=== PATIENT | female | born 1950 | race Caucasian/White ===

== ENCOUNTER → 2016-06-30 | Outpatient (CLI) | payer OTHER, BC ==
[~2016-06-30] MED LIST: ASPCH81 PO; ATOR-22 PO; BIOT1CAP8 PO; BUPR150T5 PO; CLTP PO; DOCU100C31 PO; ERGO1CAP35 PO; HYDR-5688 PO; IBUP-103 PO; LANS30CA41 PO; LEVO25TA PO; MULTTAB58 PO; NYSS/ MT; PROM1TAB6 PO; PROVERA; RALO60TA12 PO; SERT50TA PO; WLLSR/150 PO; ZLF/100 PO
[2016-06-30 11:26] LABS: ALT/SGPT 29 U/L (12-78); AST/SGOT 18 U/L (15-37); BLOOD UREA NITROGEN 12 mg/dl (7-18); BUN/CREATININE RATIO 13.4 (10-20); CALCIUM 8.4 mg/dl (8.5-10.1); CARBON DIOXIDE 29 mmol/L (21-32); CHLORIDE 108 mmol/L (98-107); CHOLESTEROL 204 mg/dl (0-200); CREATININE 0.89 mg/dl (0.60-1.20); GLUCOSE 121 mg/dl (70-99); POTASSIUM 4.1 mmol/L (3.5-5.1); SODIUM 143 mmol/L (136-145); TRIGLYCERIDES 199 mg/dl (0-150); VERY LOW DENSITY LIPOPROT CALC 40 mg/dl
[2016-06-30 11:38] LABS: ALB/GLOB RATIO 1.1 (0.9-2); ALKALINE PHOSPHATASE 64 U/L (45-117); CHOLESTEROL/HDL RATIO 4.4; HDL CHOLESTEROL 46 mg/dl; LDL CHOLESTEROL CALCULATED 118 mg/dl
== END | disposition home or self-care (01) ==
LOC: C.LABBC 07:36
PROVIDERS: ATTEND Nurse Practitioner Family
DX: E78.00 Pure hypercholesterolemia, unspecified (principal); E03.9 Hypothyroidism, unspecified

== ENCOUNTER → 2016-07-25 | Outpatient (CLI) | payer OTHER, BC ==
[~2016-07-25] MED LIST changes: -RALO60TA12 PO; +RALO60TA30 PO
--- NOTE | 2016-07-25 15:05 | DIAGNOSTIC IMAGING REPORT ---
LEFT HIP UNILATERAL 2 VIEWS CLINICAL HISTORY: LEFT HIP PAIN COMPARISON: None. DISCUSSION: No acute fractures or dislocations are visualized. There are no erosive or destructive changes. There are dystrophic type calcification located adjacent the lateral aspect of the ileum. IMPRESSION: No fractures, dislocations, or destructive lesions are visualized. Electronically signed by: Markie Aguillon M.D. 07/25/2016 3:04 PM Dictated Date/Time: 07/25/2016 3:04 PM
== END | disposition home or self-care (01) ==
LOC: C.RADBC 14:15
PROVIDERS: ATTEND Nurse Practitioner Family
DX: M25.552 Pain in left hip (principal)

== ENCOUNTER → 2016-09-26 | Outpatient (CLI) | payer OTHER, BC ==
--- NOTE | 2016-09-26 15:35 | DIAGNOSTIC IMAGING REPORT ---
MRI OF THE LUMBAR SPINE WITHOUT IV CONTRAST CLINICAL HISTORY: Spinal stenosis. COMPARISON STUDY: MRI of the lumbar spine dated 01/07/2015. Abdominal CT dated 09/27/2011. TECHNIQUE: MRI of the lumbar spine is performed using various T1 and T2-weighted sequences in the axial and sagittal planes. IV contrast was not administered for this examination. The examination is significantly degraded by open MRI technique. FINDINGS: Lumbar spine: Vertebral body height is maintained throughout the lumbar spine. There are bilateral pars defects at L5, with 10 mm of anterolisthesis at L5-S1. The degree of anterolisthesis has increased from 01/07/2015. There is significant degenerative endplate sclerosis at L5-S1 as well as marrow edema. Alignment is otherwise maintained throughout the lumbar spine. The transverse and spinous processes are intact as visualized. A hemangioma is again seen in the body of L1. No destructive bony lesion is identified. Findings suggest previous left L5-S1 hemilaminectomy. Intervertebral discs: There is advanced degenerative disc desiccation and loss of height at L5-S1. Mild desiccation is seen at the remaining lumbar levels. Minimal loss of height is present at T12-L1 and L1-L2. Spinal cord: The visualized spinal cord is normal in morphology and signal intensity. The conus medullaris terminates at the L1-L2 interspace. There is tethering of the nerve roots of the cauda equina at the level of L5. L1-L2: Unremarkable. L2-L3: Unremarkable. L3-L4: Unremarkable. L4-L5: There is minimal posterior disc bulge. There is mild bilateral subarticular stenosis. There is a large synovial cyst arising from the left facet at L4-L5. This is best seen on axial image #21, and in conjunction with hypertrophy of the ligamentum flavum, this contributes to severe central canal stenosis at this level. The minimum AP diameter is 2 mm. There is associated tethering of the nerve roots of the cauda equina at this level. Facet arthropathy also contributes to minimal bilateral neural foraminal narrowing. L5-S1: As noted above, there is grade 1 anterolisthesis at L5-S1 secondary to bilateral pars defects. There is mild to moderate central canal stenosis at this level, with a minimum AP diameter of 7 mm. Sacrum: The partially visualized sacrum is normal in morphology and signal intensity. Soft tissues: The paraspinous soft tissues are normal as imaged. A left renal cyst is incidentally noted. IMPRESSION: 1. There is a large synovial cyst arising from the left facet at L4-L5. This is new from the 2015 examination and in conjunction with hypertrophy of the ligamentum flavum causes severe central canal stenosis at this level with a minimum AP diameter of 2 mm. 2. Findings suggest previous hemilaminectomy at L5-S1 on the left. 3. There are bilateral pars defects at L5 with increasing anterolisthesis at L5-S1 from 2015. There is significant associated endplate sclerosis as well as endplate edema. There is moderate central canal stenosis at this level, with a minimum AP diameter of 7 mm. 4. See discussion for detailed level by level analysis. Dictated: 09/26/2016 2:07 PM Transcribed: 09/26/2016 3:34 PM [email or web address] Electronically signed by: Wyatt Dillard M.D. 09/26/2016 3:35 PM Dictated Date/Time: 09/26/2016 2:07 PM
== END | disposition home or self-care (01) ==
LOC: C.OPENMRI 12:53
PROVIDERS: ATTEND Orthopaedic Surgery Orthopaedic Surgery of the Spine
DX: M99.73 Connective tissue and disc stenosis of intervertebral foramina of lumbar region (principal); M71.38 Other bursal cyst, other site; M43.16 Spondylolisthesis, lumbar region

== ENCOUNTER 2016-10-20 05:29 | Inpatient (IN) | payer OTHER, BC ==
[2016-10-14 08:13] VITALS: BMI 24.0
--- NOTE | 2016-10-14 08:47 | PAT Medication Instructions ---
Service Date Oct 14, 2016. Current Home Medication List Aspirin (Aspirin Tab-Chewable *), 81 MG PO QPM Atorvastatin (Lipitor), 20 MG PO QAM Biotin (Biotin), 500 MCG PO QPM Bupropion Hcl (Wellbutrin Sr), 150 MG PO QAM Calcium/Vitamin D (Caltrate 600 Plus *), 1 TAB PO QPM Ibuprofen Tab (Advil), 400-600 MG PO PRN Lansoprazole (Prevacid), 1 CAP PO QAM Levothyroxine Sodium (Synthroid), 37.5 MCG PO QAM Multiple Vitamin (Multivitamin), 1 TAB PO QAM Raloxifene Hcl (Evista), 60 MG PO QAM Sertraline (Zoloft), 50 MG PO QPM [Provera Inj], 1 DOSE INJ [id number] Medication Instructions For Your Scheduled Surgery - Hold the following medications as of 10/15/16: Biotin (Biotin), 500 MCG PO QPM - Hold the following medications the morning of surgery: Multiple Vitamin (Multivitamin), 1 TAB PO QAM Ibuprofen Tab (Advil), 400-600 MG PO PRN (otherwise okay to continue per surgeon ) - Take the following medications the morning of surgery with a sip of water OTHERWISE NOTHING TO EAT OR DRINK AFTER MIDNIGHT: Lansoprazole (Prevacid), 1 CAP PO QAM Atorvastatin (Lipitor), 20 MG PO QAM Bupropion Hcl (Wellbutrin Sr), 150 MG PO QAM Levothyroxine Sodium (Synthroid), 37.5 MCG PO QAM Raloxifene Hcl (Evista), 60 MG PO QAM - Take the following medications as scheduled the night before surgery: Aspirin (Aspirin Tab-Chewable *), 81 MG PO QPM (okay to continue per surgeon) Sertraline (Zoloft), 50 MG PO QPM Calcium/Vitamin D (Caltrate 600 Plus *), 1 TAB PO QPM If you have any questions please call us at [phone] or [phone] or [phone]
[2016-10-14 08:56] LABS: URINE APPEARANCE CLEAR (CLEAR); URINE BILIRUBIN NEG (NEG); URINE COLOR YELLOW; URINE NITRITE NEG (NEG); URINE PH 6.5 (4.5-7.5); URINE SPECIFIC GRAVITY 1.013 (1.000-1.030); UROBILINOGEN NEG (NEG)
[2016-10-14 08:57] LABS: BASO % 0.4 %; BASO ABS # 0.03 K/uL (0-0.2); COMPLETE YES; EOS % 2.2 %; IG% 0.2 %; LYMPH % 21.5 %; LYMPH ABS # 1.84 K/uL (1.2-3.4); MEAN CELL VOLUME 94.1 fL (80-100); MEAN CORPUSCULAR HEMOGLOBIN 31.5 pg (25-34); MEAN CORPUSCULAR HGB CONC 33.5 g/dl (32-36); MEAN PLATELET VOLUME 10.5 fL (7.4-10.4); MONO % 5.7 %; PLATELET COUNT 182 K/uL (130-400); RED BLOOD COUNT 4.57 M/uL (4.2-5.4); WHITE BLOOD COUNT 8.54 K/uL (4.8-10.8)
[2016-10-14 09:04] LABS: INR 0.9 (0.9-1.1); PARTIAL THROMBOPLASTIN RATIO 1.1
[2016-10-14 09:11] LABS: MANUAL MICROSCOPIC REQUIRED? NO; REVIEW REQ? NO
[2016-10-14 09:24] LABS: BUN/CREATININE RATIO 15.1 (10-20); CALCIUM 9.3 mg/dl (8.5-10.1); CREATININE 0.87 mg/dl (0.60-1.20); POTASSIUM 4.4 mmol/L (3.5-5.1)
--- NOTE | 2016-10-14 09:29 | DIAGNOSTIC IMAGING REPORT ---
CHEST PREADMISSION(PA/LAT) CLINICAL HISTORY: Preoperative chest COMPARISON STUDY: 09/02/2014 FINDINGS: The cardiac and mediastinal contours are normal. There is no evidence of focal pulmonary consolidation. There is no evidence of failure. No pleural effusions are visualized.[ Surgical clips project over the right breast and right axillary region. IMPRESSION: No active disease in the chest. Electronically signed by: Markie Aguillon M.D. 10/14/2016 9:27 AM Dictated Date/Time: 10/14/2016 9:27 AM
--- NOTE | 2016-10-19 10:21 | History and Physical ---
History & Physical Date Oct 19, 2016. Chief Complaint Back and Leg pain History of Present Illness The patient is a 66 year old female with complaints of back and leg pain Past Medical/Surgical History Medical Problems: (1) Breast cancer Additional History Hepatic Disease: No Endocrine Disorder: No Kidney Disease: No Hypertension: No Heart Disease: No Bleeding Tendencies: No Infectious Diseases: No Allergies Coded Allergies: Penicillins (Verified Allergy, Mild, RASH, 10/14/16) Alendronate (Unverified Allergy, Unknown, GI UPSET, 10/14/16) Home Medications Scheduled Aspirin (Aspirin Tab-Chewable *), 81 MG PO QPM Atorvastatin (Lipitor), 20 MG PO QAM Biotin (Biotin), 500 MCG PO QPM Bupropion Hcl (Wellbutrin Sr), 150 MG PO QAM Calcium/Vitamin D (Caltrate 600 Plus *), 1 TAB PO QPM Ibuprofen Tab (Advil), 400-600 MG PO PRN Lansoprazole (Prevacid), 1 CAP PO QAM Levothyroxine Sodium (Synthroid), 37.5 MCG PO QAM Multiple Vitamin (Multivitamin), 1 TAB PO QAM Raloxifene Hcl (Evista), 60 MG PO QAM Sertraline (Zoloft), 50 MG PO QPM [Provera Inj], 1 DOSE INJ [id number] Physical Examination Skin: warm/dry Eyes: normal inspection ENT: normal ENT inspection Head: normocephalic Neck: supple Respiratory/Chest: lungs clear Cardiovascular: regular rate, rhythm Abdomen / GI: normal bowel sounds Back: + pertinent finding (pain with percusion, pain with motion) Extremities: normal range of motion Neurologic/Psych: no motor/sensory deficits, normal reflexes, oriented x 3 Diagnosis Spondylolisthesis and stenosis ASA Classification: ASA Class II Plan of Treatment plif l5-s1
[~2016-10-20] VITALS: Ht 154.9 cm; Wt 57.8 kg
[2016-10-20] VITALS (12 sets, daily range): BP systolic 104–133; BP diastolic 65–82; PULSE 79–101; TEMP 36.3–36.8; O2SAT 97–100; Ht 154.9 cm; Wt 57.8 kg
[~2016-10-20 05:29] MED LIST changes: -BUPR150T5 PO; -DOCU100C31 PO; -ERGO1CAP35 PO; -HYDR-5688 PO; -NYSS/ MT; -PROM1TAB6 PO; +RALO60TA12 PO; -RALO60TA30 PO; -ZLF/100 PO
[2016-10-20] MEDS ORDERED: LACTATED RINGER'S 1000ML 1,000 ML IV SCH (06:00)
[2016-10-20] MEDS ORDERED: CEFAZOLIN 2000 MG/60 ML D5W 60 ML IV SCH (06:00)
[2016-10-20] MEDS ORDERED: NSS 1000ML IV SCH (06:00)
[2016-10-20] MEDS ORDERED: FENTANYL CITRATE INJ 50 MCG/1 ML 2 ML VIAL ONE (06:41)
[2016-10-20] MEDS ORDERED: EpHEDrine SULFATE INJ 50 MG/ML AMP ONE (06:41)
[2016-10-20] MEDS ORDERED: PHENYLEPHRINE HCL INJ 10 MG/ML VIAL ONE (06:41)
[2016-10-20] MEDS ORDERED: DEXAMETHASONE SOD INJ 4 MG/ML VIAL ONE ×2 (06:41→09:13)
[2016-10-20] MEDS ORDERED: LIDOCAINE HCL 2% 2 ML VIAL (20MG/ML) ONE (06:41)
[2016-10-20] MEDS ORDERED: NEOSTIGMINE METHYLSULFATE 5 MG/5 ML SYR ONE (06:41)
[2016-10-20] MEDS ORDERED: GLYCOPYRROLATE INJ 0.2 MG/ML VIAL ONE (06:41)
[2016-10-20] MEDS ORDERED: PROPOFOL IV EMULSION 10 MG/ML 20 ML VIAL IV ONE (06:41)
[2016-10-20] MEDS ORDERED: ONDANSETRON INJ 2 MG/ML 2 ML VIAL ONE (06:41)
[2016-10-20] MEDS ORDERED: MIDAZOLAM HCL 1 MG/ML 2ML VIAL ONE (06:41)
[2016-10-20] MEDS ORDERED: ROCURONIUM BROMIDE 10 MG/ML 5 ML VIAL ONE (06:41)
[2016-10-20] MEDS ORDERED: SUCCINYLCHOLINE CHLORIDE 20 MG/ML 10 ML VIAL IV ONE (06:41)
[2016-10-20] MEDS ORDERED: KETAMINE HCL INJ 50 MG/ML 10 ML VIAL ONE (06:42)
[2016-10-20] MEDS ORDERED: HYDROmorphone INJ 2 MG/ML SYR/VIAL ONE (06:54)
[2016-10-20] MEDS ORDERED: GELATIN SPONGE SZ 100 ONE ×2 (06:56→09:50)
[2016-10-20] MEDS ORDERED: THROMBIN FOR SOLN 20000 UNIT KIT ONE (06:56)
[2016-10-20] MEDS ORDERED: VANCOMYCIN HCL 1000MG/20ML VIAL ONE (06:56)
[2016-10-20] MEDS ORDERED: BACITRACIN 50000 UNIT VIAL ONE (06:56)
--- NOTE | 2016-10-20 07:06 | History & Physical Bridge Note ---
H&P Re-Evaluation Bridge Note: I have examined the patient, reviewed the History & Physical and in the interval since the performance of the History & Physical I have noted the following changes of clinical significance: No changes noted; removal of calcium deposit left buttock
[2016-10-20] MEDS ORDERED: ATROPINE SULFATE 0.1 MG/ML 5ML SYR IV PRN (07:15)
[2016-10-20] MEDS ORDERED: PHENYLEPHRINE 100MCG/ML 5ML SYR IV PRN (07:15)
[2016-10-20] MEDS ORDERED: HYDROmorphone INJ 2 MG/ML SYR/VIAL IV PRN (07:15)
[2016-10-20] MEDS ORDERED: EpHEDrine SULFATE INJ 50 MG/ML AMP IV PRN (07:15)
[2016-10-20] MEDS ORDERED: ONDANSETRON INJ 2 MG/ML 2 ML VIAL IV PRN ×2 (07:15→11:00)
[2016-10-20] MEDS ORDERED: BUPIVACAINE 0.5 % 5 MG/1 ML MPF 30ML VIAL ONE ×3 (07:36→10:49)
[2016-10-20] MEDS ORDERED: EpHEDrine SULFATE 50MG/5ML SYR ONE (09:08)
[2016-10-20] MEDS ORDERED: ACETAMINOPHEN 325 MG TAB PO PRN (11:00)
[2016-10-20] MEDS ORDERED: METOCLOPRAMIDE HCL INJ 5 MG/ML 2 ML VIAL IV PRN (11:00)
[2016-10-20] MEDS ORDERED: LORAZEPAM INJ 1 MG in SYRINGE 0.5 ML IV PRN (11:00)
[2016-10-20] MEDS ORDERED: NALOXONE HCL 0.4 MG/1 ML VIAL/CARP IV PRN (11:00)
[2016-10-20] MEDS ORDERED: SODIUM CHLORIDE 0.9% 1000ML 1,000 ML IV SCH (11:00)
[2016-10-20] MEDS ORDERED: PROMETHAZINE HCL INJ 12.5 MG in SODIUM CHLORIDE 0.9% 50ML 50 ML IV PRN (11:00)
[2016-10-20] MEDS ORDERED: LORAZEPAM 1 MG TAB PO PRN (11:00)
[2016-10-20] MEDS ORDERED: MAGNESIUM HYDROXIDE SUSP 30 ML UDC PO PRN (11:00)
--- NOTE | 2016-10-20 11:03 | [facility] Post Operative Brief Note ---
Immediate Operative Summary Operative Date Oct 20, 2016. Pre-Operative Diagnosis Spondylolisthesis and stenosis; calcification in left buttock Post-Operative Diagnosis Same as preop Procedure(s) Performed L4-S1 Posterior Lumbar Interbody Fusion; Removal Dystrophic Calcification Left Buttock Surgeon Dr. Hare Transmission Tester Surgeon(s) Douglas Cowart PA-C Estimated Blood Loss 250 ML Findings severe arthritis and spondy. Specimens A. Calcification deposit left buttock region Complication(s) None Disposition Recovery Room / PACU
[2016-10-20] MEDS ORDERED: HYDROmorphone HCL 0.5MG/ML 50 ML CASSETTE ONE (11:15)
[2016-10-20] MEDS: HYDROmorphone HCL 0.5MG/ML 50 ML CASSETTE IV PRN ×4 (11:45→23:09)
[2016-10-20 12:16] LABS: HEMATOCRIT 37.8 % (37-47)
--- NOTE | 2016-10-20 12:22 | DIAGNOSTIC IMAGING REPORT ---
LUMBAR SPINE, INTRAOPERATIVE FLUOROSCOPY HISTORY: Laminectomy. FLUOROSCOPY TIME: 5 seconds. FINDINGS: Intraoperative fluoroscopy was provided for the lumbar spine. 2 fluoroscopic spot images were obtained. IMPRESSION: Fluoroscopy provided for a lumbar laminectomy and fusion from L4 through S1. Electronically signed by: Celestine Clark M.D. 10/20/2016 12:21 PM Dictated Date/Time: 10/20/2016 12:20 PM
--- NOTE | 2016-10-20 12:35 | Anesthesiology Progress Note ---
Anesthesia Post Op Note Date & Time Oct 20, 2016 at 12:34 Vital Signs Pain Intensity: 4 Vital Signs Past 12 Hours Date Time Temp Pulse Resp B/P (MAP) Pulse Ox O2 Delivery O2 Flow Rate FiO2 10/20/16 12:30 104 14 109/69 100 Nasal Cannula 4 10/20/16 12:15 97 14 125/73 100 Nasal Cannula 4 10/20/16 12:10 36.5 99 14 126/75 100 Nasal Cannula 4 10/20/16 12:07 104 18 10/20/16 12:07 105 18 100 10/20/16 12:06 129/76 10/20/16 12:02 108 20 10/20/16 12:02 108 20 100 10/20/16 12:01 124/80 10/20/16 11:57 112 23 10/20/16 11:57 113 23 100 10/20/16 11:56 130/74 10/20/16 11:52 101 19 10/20/16 11:52 101 19 100 10/20/16 11:51 123/77 10/20/16 11:47 108 18 100 10/20/16 11:47 108 18 10/20/16 11:46 124/75 10/20/16 11:42 100 6 100 10/20/16 11:42 100 6 10/20/16 11:41 138/82 10/20/16 11:37 100 8 10/20/16 11:37 101 8 100 10/20/16 11:36 112/73 10/20/16 11:34 108 14 100 10/20/16 11:34 106 14 10/20/16 11:34 106 14 10/20/16 11:34 108 14 100 10/20/16 11:31 135/75 10/20/16 11:31 135/75 10/20/16 11:29 114 16 10/20/16 11:29 114 16 100 10/20/16 11:29 114 16 100 10/20/16 11:29 114 16 10/20/16 11:26 177/151 10/20/16 11:26 177/151 10/20/16 11:24 116 21 10/20/16 11:24 116 21 10/20/16 11:24 117 21 100 10/20/16 11:24 117 21 100 10/20/16 11:21 107/81 10/20/16 11:21 107/81 10/20/16 11:19 108 13 100 10/20/16 11:19 108 13 10/20/16 11:19 108 13 100 10/20/16 11:19 108 13 10/20/16 11:16 127/74 10/20/16 11:16 127/74 10/20/16 11:14 110 15 100 10/20/16 11:14 110 15 10/20/16 11:14 110 15 100 10/20/16 11:14 110 15 10/20/16 11:11 110/74 10/20/16 11:11 110/74 10/20/16 11:09 104 10 10/20/16 11:09 103 10 100 10/20/16 11:09 104 10 10/20/16 11:09 103 10 100 10/20/16 11:06 118/73 10/20/16 11:06 118/73 10/20/16 11:05 117/70 10/20/16 11:05 117/70 10/20/16 11:04 113 100 10/20/16 11:04 36.4 90 10 117/70 100 Mask 10 10/20/16 11:04 113 100 10/20/16 11:04 113 10/20/16 11:04 113 10/20/16 06:02 36.8 96 16 133/82 (99) 97 Room Air Notes Mental Status: alert / awake / arousable, participated in evaluation Pt Amnestic to Procedure: Yes Nausea / Vomiting: adequately controlled Pain: adequately controlled Airway Patency, RR, SpO2: stable & adequate BP & HR: stable & adequate Hydration State: stable & adequate Anesthetic Complications: no major complications apparent
[2016-10-20] MEDS: SODIUM CHLORIDE 0.9% 1000ML 1,000 ML IV SCH ×2 (14:31→23:42)
[2016-10-20] MEDS ORDERED: PNEUMOCOCCAL ADMINISTRATION CHARGE ONE (14:45)
[2016-10-20] MEDS ORDERED: PNEUMOCOCCAL POLYSACCHARIDES 25 MCG/0.5 ML VIAL/SYR IM. ONE (14:45)
[2016-10-20] MEDS: DEXAMETHASONE INJ 10 MG in SYRINGE 0 ML IV SCH ×2 (16:43→23:43)
[2016-10-20] MEDS: CEFAZOLIN IV 1,000 MG in DEXTROSE 5% 50ML 50 ML IV SCH ×2 (17:10→23:42)
[2016-10-20] MEDS: CALCIUM 600MG + VIT D 400 IU TAB PO SCH (20:55)
[2016-10-20] MEDS: ASPIRIN 81 MG ECTAB PO SCH (20:55)
[2016-10-20] MEDS: SERTRALINE HCL 50 MG TAB PO SCH (20:55)
[2016-10-21 03:34] VITALS: BP 103/64; PULSE 84; TEMP 36.4; O2SAT 99
[2016-10-21] MEDS ORDERED: BISACODYL 5 MG TABEC PO PRN (06:00)
[2016-10-21] MEDS ORDERED: BISACODYL 10 MG SUPP PR PRN (06:00)
[2016-10-21] MEDS: LEVOTHYROXINE 25 MCG TAB PO SCH (06:01)
[2016-10-21] MEDS: HYDROmorphone HCL 0.5MG/ML 50 ML CASSETTE IV PRN (06:57)
[2016-10-21 07:25] VITALS: BP 110/70; PULSE 93; TEMP 37.2; O2SAT 98
[2016-10-21] MEDS ORDERED: HYDROmorphone INJ 2 MG/ML SYR/VIAL IV PRN (08:00)
[2016-10-21] MEDS ORDERED: HYDROmorphone INJ 1 MG/ML SYR IV PRN (08:00)
[2016-10-21] MEDS ORDERED: OXYCODONE/ACETAMINOPHEN 5-325 TAB PO PRN ×2 (08:00)
[2016-10-21] MEDS ORDERED: DC PCA SCH (08:00)
[2016-10-21] MEDS: DEXAMETHASONE INJ 10 MG in SYRINGE 0 ML IV SCH ×3 (08:43→23:37)
[2016-10-21] MEDS: BuPROPion SR 150 MG TABCR PO SCH (08:43)
[2016-10-21] MEDS: ATORVASTATIN 20 MG TAB PO SCH (08:43)
[2016-10-21] MEDS: POLYETHYLENE (MIRALAX) 17 GM PACK PO SCH (08:43)
[2016-10-21] MEDS: RALOXIFENE 60 MG TAB PO SCH (08:43)
[2016-10-21] MEDS: PANTOprazole SOD 40 MG TAB PO SCH (08:43)
[2016-10-21] MEDS ORDERED: COUGH DROP (SUGAR FREE) LOZ 24 LOZ/1 BOX ONE (08:54)
[2016-10-21] MEDS: CEFAZOLIN IV 1,000 MG in DEXTROSE 5% 50ML 50 ML IV SCH (08:59)
[2016-10-21] MEDS ORDERED: NURSING DECISION MEDICATION ORDER SCH (09:15)
[2016-10-21] MEDS ORDERED: COUGH DROP (SUGAR FREE) LOZ 24 LOZ/1 BOX PO PRN (09:30)
[2016-10-21] MEDS ORDERED: NURSING VERBAL MED ORDER ONE ×2 (11:15→12:00)
[2016-10-21] MEDS: HYDROCODONE/ACETAMOPHEN 5/325MG TAB PO PRN ×2 (14:26→20:59)
[2016-10-21 15:16] VITALS: BP 126/70; PULSE 100; TEMP 37; O2SAT 98
[2016-10-21 15:27] VITALS: BP 105/65; PULSE 107; TEMP 36.9; O2SAT 94
[2016-10-21] MEDS: CALCIUM 600MG + VIT D 400 IU TAB PO SCH (20:58)
[2016-10-21] MEDS: SERTRALINE HCL 50 MG TAB PO SCH (20:58)
[2016-10-21] MEDS: ASPIRIN 81 MG ECTAB PO SCH ×2 (20:58→21:00)
[2016-10-21 23:05] VITALS: BP 99/59; PULSE 100; TEMP 37; O2SAT 98
[2016-10-22] MEDS: LEVOTHYROXINE 25 MCG TAB PO SCH (05:12)
[2016-10-22] MEDS: HYDROCODONE/ACETAMOPHEN 5/325MG TAB PO PRN ×2 (07:18→13:36)
[2016-10-22 07:29] VITALS: BP 119/66; PULSE 85; TEMP 36.8; O2SAT 97
[2016-10-22] MEDS: RALOXIFENE 60 MG TAB PO SCH (09:03)
[2016-10-22] MEDS: BuPROPion SR 150 MG TABCR PO SCH (09:03)
[2016-10-22] MEDS: ATORVASTATIN 20 MG TAB PO SCH (09:03)
[2016-10-22] MEDS: PANTOprazole SOD 40 MG TAB PO SCH (09:03)
[2016-10-22] MEDS: POLYETHYLENE (MIRALAX) 17 GM PACK PO SCH (09:05)
[2016-10-22] MEDS ORDERED: HYDR-5688 PO ×2 (09:45)
--- NOTE | 2016-10-22 09:47 | Discharge Instructions ---
Discharge Instructions Date of Service Oct 22, 2016. Admission Reason for Admission: Spinal Stenosis Discharge Discharge Diagnosis / Problem: same Discharge Goals Goal(s): Improve function Activity Recommendations Activity Limitations: as noted below Lifting Limitations: until after follow-up appointment Exercise/Sports Limitations: until after follow-up appointment May Resume Sexual Activity: after follow-up appointment Shower/Bathe: keep incision dry . Instructions / Follow-Up Instructions / Follow-Up MEDICATIONS: Please take your prescriptions as instructed at your pre-op appointment. SPECIAL CARE: The following information is intended to answer some of the common questions and concerns regarding your surgery. Each patient is an individual and receives individual counselling throughout the course of treatment, from diagnosis to surgery all the way through recovery. What follows is not an exhaustive list, but should be a useful guide to some of the common questions and concerns patients have regarding their surgeries. These are not provided to keep you from calling us; rather, they give you something accurate and concrete to reference as you recover from your procedure. If you need us, we are available to you. As always, if you are not sure about something, call us at [phone]. MEDICAL EMERGENCIES: For these conditions, call 911 or go to your local hospital-based Emergency Department - not [facility] or equivalent. * Paralysis * Severe chest pain or difficulty breathing * Swelling or redness of either leg Spine procedures can be rather complex and though complications are rare, they do occur. In such cases, effective advice regarding emergency situations cannot always be addressed over the telephone. You may be referred to the emergency department for more effective management of your problem. Activity Limitations: It is important to give your body time to heal, so please limit your activities : * In general, don't do anything that moves your spine too much. You should avoid contact sports, twisting or heavy lifting while you recover. * 5-10 pounds is all you should attempt to lift. * You should not plan on driving for approximately 3 weeks and you should avoid traveling more than 30-45 minutes at a time. Longer trips should be broken down with walking breaks spaced appropriately. * Physical therapy is not usually required. * Walking and good posture practices will help you recover and regain your function. * Avoid straining or sudden changes in position. * In general, the goal is to take it easy and recover. Don't cause any new problems. Just relax. Showers: * Do not take a bath, use a Jacuzzi or hot tub or otherwise submerge your incision. * It is usually safe to take a shower 4-5 days after your surgery. * Your incision does not require any special creams or ointments. * Simply clean it with soap and water, dry and re-dress with a clean bandage afterwards. Incision: * Keep incision clean, dry and protected until your first follow-up appointment. * Some amount of drainage and redness is normal. Any drainage should be fairly clear and not have a foul odor. * If you feel anything is wrong or you have excessive drainage, please call us. * Your stitches and prateek will be removed 10-14 days after your surgery. At the time of your first post-op visit. * Neck surgeries are typically closed with a suture underneath the skin. The steri-strips over the incision should be maintained until we see you in the office. Bracing: * You may be provided with a back or neck brace to encourage good posture and prevent injury. It will remind you not to do too much as you heal and will alert others to the fact that you have had a surgery. * Back braces may be removed for showers and when you are resting at home. They must be worn when you are walking around for any period of time or for travel. * For neck surgery, you will likely be provided with two cervical collars. The soft collar ([place] or foam rubber) is worn most commonly throughout the day and while sleeping. The plastic collar (provided at the hospital) is for showering/bathing. * Except while eating, collars should remain in place. More specifically, bracing is provided for a purpose and should be worn. * Please obtain your brace or collars prior to your operation and bring them to the hospital with you on the day of surgery. * You should also bring your collars to your post-op appointment with Dr. Hare. You should always take good care of your body and practice healthy habits, especially following surgery. You should: * Follow your doctor's treatment plan * Sit and stand properly with good posture (ears over shoulders, shoulders over hips) Don't slouch * Learn to lift correctly * Exercise regularly (low-impact aerobic exercise is especially good, but check with your doctor first) * Generally, be up and walking for 5-10 minutes at a time at least 3-4 times per day from the day you get home * Increasing walking to tolerance until you can walk for 20-30 minutes at a time * Attain and maintain a healthy body weight * Eat healthy foods ( a well-balanced, low-fat diet rich in fruits and vegetables) and get enough calcium * Avoid excessive use of alcohol When to call our office - If you notice any of the following: * Increased pain not relieve by pain medicine * Fevers greater then 100 degrees F, chills or flu symptoms * Increased redness around incision * Drainage from the incision that is not clear * Any foul smelling drainage * Swelling or fluid collection beneath the skin Miscellaneous: * In the hospital, you may be given a walker or cane for support while walking. These are temporary needs and are intended to prevent injuries due to falls. You may discontinue them when you feel strong and steady enough on your feet. * Sleep in a comfortable position. We find that many patients find a lounge chair or recliner with several pillows to be beneficial in the early post-operative period. * The support stockings should be used for 7-10 days and may be discontinued when you are back to walking more and conducting usual household activities. No problem is insignificant. We are here to help you and get you well. Contact us at [phone]. Definitions: Foraminotomy: If part of the disc or a bone spur (osteophyte) is pressing on a nerve as it leaves the vertebra (through an exit called the foramen), a foraminotomy may be done. Otomy means "to make an opening." A foraminotomy is making the opening of the foramen larger, so the nerve can exit without being compressed. Laminotomy: Similar to the foraminotomy, a laminotomy makes a larger opening, this time in your bony plate protecting your spinal canal and spinal cord (the lamina). The lamina may be pressing on your nerve, so the surgeon may make more room for the nerves using a laminotomy. Laminectomy: Sometimes, a laminotomy is not sufficient. The surgeon may need to remove all or part of the lamina. This procedure is called a laminectomy. This can often be done at many levels without any harmful effects. Current Hospital Diet Patient's current hospital diet: Regular Diet Discharge Diet Recommended Diet: Regular Diet Procedures Procedures Performed: L4-S1 Posterior Lumbar Interbody Fusion; Removal Dystrophic Calcification Left Buttock Pending Studies Studies pending at discharge: no Medical Emergencies . Who to Call and When: Medical Emergencies: If at any time you feel your situation is an emergency, please call 911 immediately. . Non-Emergent Contact Non-Emergency issues call your: Surgeon . "Provider Documentation" section prepared by Rodney Hare. . VTE Core Measure Inpt VTE Proph given/why not?: Treatment not indicated (home, rest ,recover, follow up in 10 days)
--- NOTE | 2016-10-22 09:52 | Discharge Summary ---
Orthopedic Discharge Summary Admission Date/Reason Oct 20, 2016 at 11:00 Spinal Stenosis. Discharge Date/Disposition Oct 22, 2016 Home with services Diagnosis Principal Diagnosis: stenosi Admission Physical Exam As per Admitting History & Physical. Discharge Instructions Please refer to the electronic Patient Visit Report (Discharge Instructions) for additional information.
[2016-10-22 15:25] VITALS: BP 119/66; PULSE 85; TEMP 36.8; O2SAT 97
--- NOTE | 2016-10-25 09:07 | [facility] Operative Report ---
Operative Report Operative Date Oct 25, 2016. Pre-Operative Diagnosis Spondylolisthesis and stenosis; calcification in left buttock Procedure(s) Performed Posterior lumbar spine decompression L4 L5 L5 S1 2 level decompression. A very large synovial cyst at the lumbar 4-5 region of the lumbar spine region of the lumbar spine pedicle screw instrumentation L4-L5 and S1 sterile lumbar interbody fusion L5-S1 fusion L4 to 5 and L5-S1. Procedures well was a removal of a calcific body in density Buttock region Surgeon Dr. Hare Viscose Department Worker Surgeon(s) Douglas Cowart PA-C Estimated Blood Loss 250 ML Findings Severe spinal stenosis lumbar spine L5-S1 spinal instability L4 5 L5-S1. Large synovial cyst L4 5 and spondylolisthesis 5 S1 lumbar spine. We will large calcific body in the left buttock region. Specimens A. Calcification deposit left buttock region Complication(s) None Disposition Recovery Room / PACU Indications Severe pain and weakness Description of Procedure The patient was taken to the operating room on any [facility] room #3. General intubated anesthetic provided the patient. The patient placed prone on the [place] table. She was scrubbed first with Betadine prep them with ChloraPrep. Skin incision was first made L4 to the sacral region dissecting the soft tissue. Put in a deep self-retaining retractor probably 3 inches in length decompression of the spinal elements. We removed the 2 elements at L5 and L4. 2 level laminectomy of the area. Foraminotomies were also performed. Evident to me at this point in time that the spine was quite unstable. The joints at L5-S1 L4 5 were equally worn out on and unstable the lumbar region. We also successfully got a large synovial cyst on the left tense of her neural canal. Then safely instrumented spine. To get safely pedicle screws at 45 S1 on the right and 45 S1 on the left-hand side we used anatomic landmarks fluoroscopy to localize the pedicle screws. Then did a posterior lumbar interbody fusion L5- S1 L that she knew needed good interbody support at L5-S1. He did dura in a medial direction from the 5 S1 region complete discectomy. Ari and shaved up to approximate size 12 interbody graft. Packed with cancellus bone autograft. So preceded with autograft at L5-S1 as well. Locked down the construct with a 65 mm xavier from the [employer]. Then irrigated thoroughly with 600 mL of irrigant. Bone grafted out of the transverse processes with a combination of autograft and allograft. Then placed vancomycin deep to the wound later to be placed in the subcuticular layer. A standard drain deep to the wound as well post fascia to fascia with 1 Vicryl suture to all in a subcuticular layer real nylon on the skin surface. Sterile dressings applied to the wound the patient return supine extubated to PACU improved stable condition. Mili G needle count correct at the close of procedure read no apparent interoperative complications estimated blood loss 250 mL. Surgeon Rodney Taveras D.O. System Douglas Campbell. Indira Campbell PA-C was instrumental in all aspects of the case dissection and retraction of the pedicle screws. I attest to the content of the Intraoperative Record and any orders documented therein. Any exceptions are noted below.
--- NOTE | 2016-10-25 09:10 | Discharge Summary ---
Orthopedic Discharge Summary Admission Date/Reason Oct 20, 2016 at 11:00 Spinal Stenosis. Discharge Date/Disposition Oct 22, 2016 Home with services Diagnosis Principal Diagnosis: Stenosis. Spinal instability L4-L5 and L5-S1. Our synovial cyst L5-S1. Large heterotopic calcific bone density. Grade 2 spondylolisthesis lumbar spine L5- S1. Procedure(s) Performed Decompression laminectomy L4 5 5 S1. Lumbar interbody fusion L5-S1 posterior lateral fusion L4 L5 S1. We will of the large calcific density Admission Physical Exam As per Admitting History & Physical. Discharge Instructions Please refer to the electronic Patient Visit Report (Discharge Instructions) for additional information. Additional Copies To Rodney Hare, DO
== END 2016-10-22 15:47 | disposition home health service (06) | DRG 460 ==
LOC: C.ACU 05:29 → C.3E 11:00 → ENRESERV 12:27
PROVIDERS: ADMIT Orthopaedic Surgery Orthopaedic Surgery of the Spine; ATTEND Orthopaedic Surgery Orthopaedic Surgery of the Spine
PROC: 0ST40ZZ Resection of Lumbosacral Disc, Open Approach (ICD-10-PCS; principal; 2016-10-20 07:30)
PROC: 0SG30A1 (ICD-10-PCS; principal; 2016-10-20 07:30)
PROC: 0SP00AZ Removal of Interbody Fusion Device from Lumbar Vertebral Joint, Open Approach (ICD-10-PCS; principal; 2016-10-20 07:30)
DX: M48.07 Spinal stenosis, lumbosacral region (principal); M43.17 Spondylolisthesis, lumbosacral region; M71.38 Other bursal cyst, other site; M79.9 Soft tissue disorder, unspecified; Z79.82 Long term (current) use of aspirin; Z79.899 Other long term (current) drug therapy

== ENCOUNTER 2016-10-26 10:36 | Emergency (ER) | payer OTHER, BC ==
[~2016-10-26 10:36] MED LIST changes: +HYDR-5688 PO
[2016-10-26 10:50] VITALS: TEMP 37.1
[2016-10-26 11:17] VITALS: O2SAT 99
[2016-10-26] MEDS ORDERED: NYSS/ MT (11:18)
[2016-10-26] MEDS ORDERED: BUPR150T5 PO (11:18)
[2016-10-26] MEDS ORDERED: DOCU100C31 PO (11:18)
[2016-10-26] MEDS ORDERED: ZLF/100 PO (11:18)
[2016-10-26] MEDS ORDERED: PROM1TAB6 PO (11:18)
[2016-10-26 11:30] LABS: HEMATOCRIT 31.6 % (37-47); MEAN CELL VOLUME 94.9 fL (80-100); MEAN CORPUSCULAR HEMOGLOBIN 31.2 pg (25-34); MEAN CORPUSCULAR HGB CONC 32.9 g/dl (32-36); MEAN PLATELET VOLUME 9.6 fL (7.4-10.4); PLATELET COUNT 212 K/uL (130-400); RED BLOOD COUNT 3.33 M/uL (4.2-5.4); WHITE BLOOD COUNT 11.65 K/uL (4.8-10.8)
[2016-10-26 11:40] LABS: ALT/SGPT 33 U/L (12-78); BLOOD UREA NITROGEN 12 mg/dl (7-18); BUN/CREATININE RATIO 13.4 (10-20); CALCIUM 8.6 mg/dl (8.5-10.1); CARBON DIOXIDE 27 mmol/L (21-32); CHLORIDE 105 mmol/L (98-107); GLUCOSE 101 mg/dl (70-99); POTASSIUM 3.5 mmol/L (3.5-5.1); SODIUM 140 mmol/L (136-145)
--- NOTE | 2016-10-26 11:43 | DIAGNOSTIC IMAGING REPORT ---
CHEST ONE VIEW PORTABLE CLINICAL HISTORY: c02b dyspnea COMPARISON STUDY: 10/14/2016 FINDINGS: The bones soft tissues and hemidiaphragms are normal. The cardiomediastinal silhouette is normal. The lungs are clear. The pulmonary vasculature is normal. IMPRESSION: Negative chest. Electronically signed by: Celestine Clark M.D. 10/26/2016 11:42 AM Dictated Date/Time: 10/26/2016 11:36 AM
[2016-10-26 11:45] LABS: ALB/GLOB RATIO 0.9 (0.9-2); ALKALINE PHOSPHATASE 56 U/L (45-117); AST/SGOT 20 U/L (15-37); INR 0.9 (0.9-1.1); PARTIAL THROMBOPLASTIN RATIO 0.9; PROTHROMBIN TIME (PATIENT) 9.9 SECONDS (9.0-12.0)
[2016-10-26] MEDS ORDERED: SODIUM CHLORIDE 0.9% 500ML 500 ML IV STA ×2 (12:19→13:29)
[2016-10-26] MEDS ORDERED: SODIUM CHLORIDE 0.9% 1000ML 1,000 ML IV STA (12:19)
[2016-10-26] MEDS ORDERED: OPTIRAY 320 IV PRN (12:30)
--- NOTE | 2016-10-26 13:16 | DIAGNOSTIC IMAGING REPORT ---
((CHEST FOR PE) ANGIO WITH CT DOSE: 205.88 mGy.cm HISTORY: 66 showed female presents with acute chest pain and tachycardia. TECHNIQUE: Multiple CTA images of the chest were obtained after the intravenous administration of 94 mL Optiray 320. Coronal and sagittal MIPS were obtained from the axial data set and were submitted for review. Comparison: Chest radiograph of same day. Findings: CTA: There is adequate opacification of the pulmonary arteries to the level of the subsegmental branches without convincing evidence of acute pulmonary embolism. The thoracic aorta is normal in course and caliber. There is mild atherosclerotic plaquing of the aorta. There is mild/moderate narrowing of the proximal celiac trunk best seen on sagittal image 77, likely from atheromatous plaquing. Note is made of a replaced right hepatic artery. CT CHEST: No axillary or mediastinal adenopathy by CT size criteria. Heart size is normal. The lungs are clear. There is no pneumothorax or pleural effusion. Surgical clips are seen within the superior aspect of the right breast. The imaged upper abdominal structures are normal. The osseous structures appear intact with mild multilevel endplate spurring and facet arthropathy. IMPRESSION: 1. No evidence of pulmonary thromboembolic disease. 2. Mild to moderate narrowing of the proximal celiac trunk is likely from atheromatous plaquing. 3. Incidental note is made of postsurgical change of the superior right breast. Electronically signed by: Loi Crook 10/26/2016 1:14 PM Dictated Date/Time: 10/26/2016 1:05 PM
--- NOTE | 2016-10-26 13:58 | EMERGENCY ROOM VISIT NOTE ---
History Report prepared by Kelsie: Ilene Salcedo Under the Supervision of: Dr. Wyatt Parnell M.D. First contact with patient: 11:42 Chief Complaint: TACHYCARDIA Stated Complaint: ELEVATED PULSE RATE Nursing Triage Summary: pt reports "the home health nurse talked to the dr and told me to come in here because my heart rate has been up since surgery." pt reports back surgery by dr hare last week was discharged monday. pt denies any shortness of breath reports "i just have a dry cough." History of Present Illness The patient is a 66 year old female who presents to the Emergency Room with complaints of persistent tachycardia that was first noticed 3 days ago. The patient's home health nurse evaluated her 3 days ago and informed her that her pulse was in the 120s. She states that her pulse has been high every day since then which is why the home health nurse recommended coming into the ED. The patient states that she had L5-S1 surgery done [address] Hare. She was discharged from the hospital 4 days ago and her symptoms started 1 day after being home. The patient states that when she got home she started to experience a dry cough followed by some mouth soreness. The patient states that she has had thrush in the past after surgery so she suspected that was causing her mouth discomfort. She is also experiencing a sore throat that she describes as burning, difficulty swallowing because "it feels thick", and numbness in her right toes. She states that she experiences alternating moments of being sweaty than cold. The patient states that when she blows her nose it feels like " pieces of things" are coming out from her throat. She states that she has not had much of an appetite. She denies chest pain and shortness of breath. The patient called Dr. Hare 2 days after being discharged to discuss her symptoms with him. He said that the numbness in her toes is likely secondary to swelling from the surgery. The patient states that Dr. Hare also told her that her symptoms may be secondary to being under anesthesia for a prolonged amount of time. He prescribed her antifungal mouthwash and Zofran. The patient adds that she has been experiencing constipation since the surgery, but that is normal for her. The patient denies any recent sick contacts. Source of History: patient Onset: 3 days ago Position: chest Quality: other (tachycardia) Timing: other (persistent) Associated Symptoms: + sorethroat (burning), + cough, + numbness, No chest pain, No SOB Note: difficulty swallowing because "it feels thick", alternating moments of being sweaty than cold, mouth soreness Review of Systems See HPI for pertinent positives & negatives. A total of 10 systems reviewed and were otherwise negative. Past Medical & Surgical Medical Problems: (1) Breast cancer (2) Spondylolisthesis, lumbar region Family History Cancer Social History Smoking Status: Former Smoker Alcohol Use: occasionally Marital Status: Occupation Status: employed Current/Historical Medications Scheduled Atorvastatin (Lipitor), 20 MG PO QAM Biotin (Biotin), 500 MCG PO QPM Bupropion Hcl (Bupropion Hcl Xl), 150 MG PO DAILY Docusate Sodium (Docusate Sodium), 100 MG PO TID Ibuprofen Tab (Advil), 400-600 MG PO PRN Lansoprazole (Prevacid), 1 CAP PO QAM Levothyroxine Sodium (Synthroid), 37.5 MCG PO QAM Multiple Vitamin (Multivitamin), 1 TAB PO QAM Nystatin (Nystatin Suspension), 6 ML MT QID Raloxifene Hcl (Evista), 60 MG PO QAM Sertraline HCl (Sertraline HCl), 100 MG PO DAILY [Provera Inj], 1 DOSE INJ [id number] Scheduled PRN Hydrocodone/Acetaminophen 5MG/325MG ([place] 5MG/325MG), 1-2 TAB PO Q6H PRN for Pain Promethazine (Phenergan), Unknown Dose PO Q6 PRN for Nausea Allergies Coded Allergies: Penicillins (Verified Allergy, Mild, RASH, 10/14/16) Alendronate (Verified Allergy, Unknown, GI UPSET, 10/20/16) Physical Exam Vital Signs Date Time Temp Pulse Resp B/P (MAP) Pulse Ox O2 Delivery O2 Flow Rate FiO2 10/26/16 14:39 97 18 113/78 99 10/26/16 13:23 95 10/26/16 13:15 98 20 137/75 100 Room Air 10/26/16 12:00 100 20 128/77 94 Room Air 10/26/16 11:17 99 Room Air 10/26/16 11:17 108 10/26/16 11:17 99 Room Air 7/5/17 10:50 37.1 111 18 113/59 96 Room Air Physical Exam GENERAL: Patient is in no acute distress. HEENT: No acute trauma, normocephalic atraumatic, mucous membranes moist, no nasal congestion, no throat erythema or exudate, no scleral icterus. NECK: No stridor, no adenopathy, no meningismus, trachea is midline. LUNGS: Clear to auscultation bilaterally, no wheeze, no rhonchi, breath sounds equal. HEART: Without murmurs gallops or rubs, regular rate and rhythm. ABDOMEN: Soft, nontender, bowel sounds positive, no hernias, no peritonitis. BACK: Dressing in place consistent with her recent lumbar surgery. EXTREMITIES: No cyanosis or edema, full range of motion of all the joints without pain or difficulty, no signs for acute trauma. RECTAL: Brown stool, heme negative. NEUROLOGIC: Oriented x 3, no acute motor or sensory deficits, no focal weakness. SKIN: No rash, no jaundice, no diaphoresis. Medical Decision & Procedures ER Provider Diagnostic Interpretation: Radiology results as stated below per my review and radiologist interpretation: CHEST ONE VIEW PORTABLE FINDINGS: The bones soft tissues and hemidiaphragms are normal. The cardiomediastinal silhouette is normal. The lungs are clear. The pulmonary vasculature is normal. IMPRESSION: Negative chest. Electronically signed by: Celestine Clark M.D. 10/26/2016 11:42 AM Dictated Date/Time: 10/26/2016 11:36 AM ((CHEST FOR PE) ANGIO WITH CTA: There is adequate opacification of the pulmonary arteries to the level of the subsegmental branches without convincing evidence of acute pulmonary embolism. The thoracic aorta is normal in course and caliber. There is mild atherosclerotic plaquing of the aorta. There is mild/moderate narrowing of the proximal celiac trunk best seen on sagittal image 77, likely from atheromatous plaquing. Note is made of a replaced right hepatic artery. CT CHEST: No axillary or mediastinal adenopathy by CT size criteria. Heart size is normal. The lungs are clear. There is no pneumothorax or pleural effusion. Surgical clips are seen within the superior aspect of the right breast. The imaged upper abdominal structures are normal. The osseous structures appear intact with mild multilevel endplate spurring and facet arthropathy. IMPRESSION: 1. No evidence of pulmonary thromboembolic disease. 2. Mild to moderate narrowing of the proximal celiac trunk is likely from atheromatous plaquing. 3. Incidental note is made of postsurgical change of the superior right breast. Electronically signed by: Loi Crook 10/26/2016 1:14 PM Dictated Date/Time: 10/26/2016 1:05 PM Laboratory Results 10/26/16 11:14 10/26/16 11:14 Test 10/26/16 11:14 Red Blood Count 3.33 M/uL (4.2-5.4) Mean Corpuscular Volume 94.9 fL (80-100) Mean Corpuscular Hemoglobin 31.2 pg (25-34) Mean Corpuscular Hemoglobin Concent 32.9 g/dl (32-36) RDW Standard Deviation 45.2 fL (36.4-46.3) RDW Coefficient of Variation 13.2 % (11.5-14.5) Mean Platelet Volume 9.6 fL (7.4-10.4) Prothrombin Time 9.9 SECONDS (9.0-12.0) Prothromb Time International Ratio 0.9 (0.9-1.1) Activated Partial Thromboplast Time 24.0 SECONDS (21.0-31.0) Partial Thromboplastin Ratio 0.9 Anion Gap 8.0 mmol/L (3-11) Estimated GFR () 77.2 Estimated GFR (Non- 66.6 BUN/Creatinine Ratio 13.4 (10-20) Calcium Level 8.6 mg/dl (8.5-10.1) Total Bilirubin 0.4 mg/dl (0.2-1) Aspartate Amino Transf (AST/SGOT) 20 U/L (15-37) Alanine Aminotransferase (ALT/SGPT) 33 U/L (12-78) Alkaline Phosphatase 56 U/L (45-117) Total Creatine Kinase 117 U/L (26-192) Creatine Kinase MB 1.2 ng/ml (0.5-3.6) Creatine Kinase MB Ratio 1.0 (0-3.0) Troponin I < 0.015 ng/ml (0-0.045) Total Protein 6.3 gm/dl (6.4-8.2) Albumin 2.9 gm/dl (3.4-5.0) Globulin 3.4 gm/dl (2.5-4.0) Albumin/Globulin Ratio 0.9 (0.9-2) Laboratory results reviewed by me. Medications Administered Medications (Trade) Dose Ordered Sig/Richard Route Start Time Stop Time Status Last Admin Dose Admin Sodium Chloride 500 ml @ 999 mls/hr Q31M STAT IV 10/26/16 12:19 10/26/16 12:49 DC 10/26/16 12:19 999 MLS/HR Sodium Chloride 1,000 ml @ 125 mls/hr Q8H STAT IV 10/26/16 12:19 10/26/16 15:14 DC 10/26/16 12:19 125 MLS/HR Sodium Chloride 500 ml @ 999 mls/hr Q31M STAT IV 10/26/16 13:29 10/26/16 13:59 DC 10/26/16 13:40 999 MLS/HR ECG Indication: tachycardia Rate (beats per minute): 107 Rhythm: sinus tachycardia Findings: no acute ischemic change, no ectopy ED Course 1142: The medical student evaluated the patient at this time. We discussed her finds as well as potential treatment plans. 1214: The patient was evaluated in room C2. A complete history and physical exam was performed. 1219: Ordered Sodium Chloride 1000 ml @ 125 mls/hr IV, Sodium Chloride 500 ml @ 999 mls/hr IV 1329: Ordered Sodium Chloride 500 ml @ 999 mls/hr IV 1402: Reevaluated the patient. She is feeling better. Discussed results and discharge instructions: she verbalized understanding and agreement. The patient is ready for discharge. Medical Decision Differential diagnoses considered include PE, dehydration, pneumonia, strep pharyngitis, viral illness, anemia, electrolyte imbalance, dysrhythmia. Medication Reconciliation: I attest that I have personally reviewed the patient' s current medication list. Blood Pressure Screening: Patient was found to have normal blood pressure on screening and does not require follow-up. There is a mild leukocytosis, this could be consistent with infection or the stress of her situation. She is slightly anemic, rectal exam shows no blood in the stool per my evaluation. There is no significant electrolyte abnormality, kidney failure or hepatitis. EKG shows a sinus tachycardia, no acute ischemia. Cardiac enzyme testing times one is not consistent with acute cardiac injury. Chest x-ray does not show pneumonia or CHF. Chest CT shows no PE, no evidence for pneumonia. The patient presents with some tachycardia and chest/throat congestion. I was able to perform a rapid strep, this was negative. The patient received IV saline, she has done well, her heart rate is now nicely controlled. I think the patient's issue is primarily dehydration, she is recovering from back surgery and dehydration is common after this type of surgical intervention. She has done well with IV saline, her workup here is reassuring. I do believe that she can be discharged home. She was encouraged to follow with her doctor, she will return here if worsening. She will increase her hydration at home. Impression Primary Impression: Tachycardia Additional Impressions: Dehydration S/P spinal surgery Anemia Scribe Attestation The scribe's documentation has been prepared under my direction and personally reviewed by me in its entirety. I confirm that the note above accurately reflects all work, treatment, procedures, and medical decision making performed by me. Departure Information Dispostion Home / Self-Care Referrals Silvio Tadeo III, CRNP (PCP) Forms HOME CARE DOCUMENTATION FORM, IMPORTANT VISIT INFORMATION, WORK / SCHOOL INSTRUCTIONS Patient Instructions My [facility] Additional Instructions stay well hydrated rest care as before follow with your doctors as an outpt return for worsening symptoms or fever Problem Qualifiers Additional Impressions: Anemia Anemia type: unspecified type Qualified Codes: D64.9 - Anemia, unspecified
[2016-10-26 14:39] VITALS: BP 113/78; PULSE 97; O2SAT 99
== END 2016-10-26 14:40 | disposition home or self-care (01) ==
LOC: C.EDB 10:39 → C.EDC 14:40
DX: R00.0 Tachycardia, unspecified (principal); E86.0 Dehydration; D64.9 Anemia, unspecified; M43.16 Spondylolisthesis, lumbar region; Z85.3 Personal history of malignant neoplasm of breast; Z87.891 Personal history of nicotine dependence

== ENCOUNTER → 2017-01-30 | Outpatient (CLI) | payer OTHER, BC ==
[~2017-01-30] MED LIST changes: -ASPCH81 PO; +BUPR150T5 PO; -CLTP PO; +DOCU100C31 PO; +NYSS/ MT; +PROM1TAB6 PO; -SERT50TA PO; -WLLSR/150 PO; +ZLF/100 PO
[2017-01-30 17:39] LABS: BASO % 0.3 %; BASO ABS # 0.02 K/uL (0-0.2); COMPLETE YES; EOS % 2.2 %; HEMATOCRIT 40.4 % (37-47); IG% 0.1 %; LYMPH % 27.4 %; LYMPH ABS # 1.84 K/uL (1.2-3.4); MEAN CELL VOLUME 88.8 fL (80-100); MEAN CORPUSCULAR HEMOGLOBIN 28.1 pg (25-34); MEAN CORPUSCULAR HGB CONC 31.7 g/dl (32-36); MEAN PLATELET VOLUME 10.8 fL (7.4-10.4); MONO % 4.5 %; NEUT % 65.5 %; PLATELET COUNT 187 K/uL (130-400); RED BLOOD COUNT 4.55 M/uL (4.2-5.4); WHITE BLOOD COUNT 6.72 K/uL (4.8-10.8)
[2017-01-30 17:46] LABS: ALT/SGPT 28 U/L (12-78); BLOOD UREA NITROGEN 10 mg/dl (7-18); CALCIUM 8.7 mg/dl (8.5-10.1); CARBON DIOXIDE 27 mmol/L (21-32); CHLORIDE 106 mmol/L (98-107); CREATININE 0.92 mg/dl (0.60-1.20); GLUCOSE 217 mg/dl (70-99); POTASSIUM 3.6 mmol/L (3.5-5.1); SODIUM 140 mmol/L (136-145)
[2017-01-30 17:56] LABS: ALB/GLOB RATIO 1.1 (0.9-2); ALKALINE PHOSPHATASE 80 U/L (45-117); AST/SGOT 24 U/L (15-37)
[2017-01-31 05:50] LABS: ESTIMATED AVERAGE GLUCOSE 137 mg/dl; HA1C FLAG Normal (Normal)
== END | disposition home or self-care (01) ==
LOC: C.LABBC 14:49
PROVIDERS: ATTEND Internal Medicine Hematology & Oncology
DX: Z11.59 Encounter for screening for other viral diseases (principal); C50.919 Malignant neoplasm of unspecified site of unspecified female breast; M81.8 Other osteoporosis without current pathological fracture; E78.00 Pure hypercholesterolemia, unspecified; E03.9 Hypothyroidism, unspecified; R73.9 Hyperglycemia, unspecified

== ENCOUNTER → 2017-02-02 | Outpatient (CLI) | payer OTHER, BC ==
[2017-02-02 10:55] LABS: CHOLESTEROL/HDL RATIO 4.2
== END | disposition home or self-care (01) ==
LOC: C.LABBC 07:45
PROVIDERS: ATTEND Nurse Practitioner Family
DX: E78.00 Pure hypercholesterolemia, unspecified (principal); E03.9 Hypothyroidism, unspecified; R73.9 Hyperglycemia, unspecified

== ENCOUNTER → 2017-05-16 | Day surgery (SDC) | payer OTHER, BC ==
[2017-05-04 08:52] VITALS: Ht 154.9 cm; Wt 54.5 kg
[~2017-05-16] VITALS: Ht 154.9 cm; Wt 54.5 kg
[~2017-05-16] MED LIST changes: +ASPCH81X PO; +CALC-279 PO; -DOCU100C31 PO; -HYDR-5688 PO; -IBUP-103 PO; +LIDOCAINE HCL 2% 2 ML VIAL (20MG/ML) ONE; +MULT-506 PO; -MULTTAB58 PO; -NYSS/ MT; -PROM1TAB6 PO; +PROPOFOL IV EMULSION 10 MG/ML 20 ML VIAL IV ONE; -PROVERA; -RALO60TA12 PO; +RALO60TA30 PO; +SERT50TA PO; +SODIUM CHLORIDE 0.9% 500ML 500 ML IV ONE; -ZLF/100 PO
--- NOTE | 2017-05-16 08:36 | Endo History and Physical ---
History & Physical Date of Service: May 16, 2017. Chief Complaint: Screening Referring Physician: AUSTYN Particia III History of Present Illness 66 yo CF who presents for screening colonoscopy. Past Medical History Osteoporosis, Reflux, Cancer, High Cholesterol, Thyroid Disease Past Surgical History Hx Cardiac Surgery: No Hx Internal Defibrillator: No Hx Pacemaker: No Hx Abdominal Surgery: Yes (CARLY/PARTIAL BILAT OOPHERECTOMY) Hx of Implantable Prosthesis: No Hx Post-Op Nausea and Vomiting: No Hx Cancer Surgery: Yes (RT LUMPECTOMY) Hx Thoracic Surgery: No Hx Orthopedic: Yes (RT CTR, LUMBAR FUSION) Hx Urinary Tract Surgery: No Family History IBD Social History Smoking Status: Former Smoker Hx Substance Use: No Hx Alcohol Use: Yes (1 GLASS WINE EVERY EVENING) Allergies Coded Allergies: Penicillins (Verified Allergy, Mild, RASH, 05/16/17) Alendronate (Verified Allergy, Unknown, GI UPSET, 05/16/17) Current Medications Reported Home Medications Medications Dose Route/Sig Max Daily Dose Days Date Category Biotin 1 Mg Cap 1 Cap PO QPM 05/04/17 Reported Zoloft (Sertraline HCl) 50 Mg Tab 50 Mg PO QPM 05/04/17 Reported Multivitamin (Multivitamins) Tab 1 Tab PO QPM 05/04/17 Reported Calcium Citrate + D (Calcium Citrate-Vitamin D) 1 Tab Tab 1 Tab PO HS 05/04/17 Reported Aspirin Chewable (Aspirin) 81 Mg Chew 81 Mg PO HS 05/04/17 Reported Bupropion Hcl Xl (Bupropion Hcl) 150 Mg Tab 150 Mg PO QAM 10/26/16 Reported Prevacid (Lansoprazole) 30 Mg Cap 1 Cap PO QAM 30 08/12/15 Reported Synthroid (Levothyroxine Sodium) 25 Mcg Tab 37.5 Mcg PO QAM 03/31/15 Reported Lipitor (Atorvastatin Calcium) 20 Mg Tab 20 Mg PO QAM 03/31/15 Reported Evista (Raloxifene Hcl) 60 Mg Tab 60 Mg PO QAM 03/31/15 Reported Vital Signs Weight (Kilograms): 54.55 Height (Feet): 5 Height (Inches): 1 Date Time Temp Pulse Resp B/P (MAP) Pulse Ox O2 Delivery O2 Flow Rate FiO2 05/16/17 08:28 37.2 80 16 131/69 (89) 97 Room Air Physical Exam General Appearance: WD/WN, no apparent distress Respiratory/Chest: Auscultation: breath sounds normal Cardiovascular: Heart Auscultation: RRR Abdomen: Bowel Sounds: normal Inspection & Palpation: soft, non-distended, no tenderness, guarding & rebound Assessment and Plan Assessment: 66 yo CF who presents for screening colonoscopy. Plan: Proceed with colonoscopy.
--- NOTE | 2017-05-16 09:44 | Discharge Instructions ---
Endoscopy Patient Instructions Date / Procedure(s) Performed May 16, 2017. Colonoscopy Allergy Information Coded Allergies: Penicillins (Verified Allergy, Mild, RASH, 05/16/17) Alendronate (Verified Allergy, Unknown, GI UPSET, 05/16/17) Discharge Date / Findings May 16, 2017. Diverticulosis Internal hemorrhoids Medication Instructions Stopped Medication(s): ASA 81 mg OK to resume all medications today as prescribed Reported Home Medications Medications Dose Route/Sig Max Daily Dose Days Date Category Biotin 1 Mg Cap 1 Cap PO QPM 05/04/17 Reported Zoloft (Sertraline HCl) 50 Mg Tab 50 Mg PO QPM 05/04/17 Reported Multivitamin (Multivitamins) Tab 1 Tab PO QPM 05/04/17 Reported Calcium Citrate + D (Calcium Citrate-Vitamin D) 1 Tab Tab 1 Tab PO HS 05/04/17 Reported Aspirin Chewable (Aspirin) 81 Mg Chew 81 Mg PO HS 05/04/17 Reported Bupropion Hcl Xl (Bupropion Hcl) 150 Mg Tab 150 Mg PO QAM 10/26/16 Reported Prevacid (Lansoprazole) 30 Mg Cap 1 Cap PO QAM 30 08/12/15 Reported Synthroid (Levothyroxine Sodium) 25 Mcg Tab 37.5 Mcg PO QAM 03/31/15 Reported Lipitor (Atorvastatin Calcium) 20 Mg Tab 20 Mg PO QAM 03/31/15 Reported Evista (Raloxifene Hcl) 60 Mg Tab 60 Mg PO QAM 03/31/15 Reported Provider Instructions Activity Restrictions - No exercising or heavy lifting for 24 hours. - Do not drink alcohol the day of the procedure. - Do not drive a car or operate machinery until the day after the procedure. - Do not make any important decisions or sign important papers in 24 hours after the procedure. Following Day: - Return to full activity which may include returning to work/school. Diet Start your diet with liquids and light foods (jello, soup, juice, toast). Then eat your usual diet if not nauseated. Treatment For Common After Affects For mild abdominal pain, bloating, or excessive gas: - Rest - Eat lightly - Lie on right side Follow-Up Information Follow-up with AUSTYN Patricia III as scheduled Anesthesia Information What You Should Know You have had a procedure that required some medicine to reduce anxiety and discomfort. This treatment is called moderate sedation. After receiving the treatment, you may be sleepy, but you will be able to breathe on your own. The effects of the treatment may last for several hours. Follow these instructions along with Activity/Diet recommendations noted above: * Do NOT do anything where dizziness or clumsiness would be dangerous. * Rest quietly at home today, then you can be up and about tomorrow. * Have a responsible person stay with you the rest of today. * You may have had an I.V. today. If so, you may take the dressing off later today. Recommendations Call your doctor if: * Trouble breathing * Continuous vomiting for more than 24 hours * Temperature above 101 degrees * Severe abdominal pain or bloating * Pain not relieved by pain medicine ordered * There is increased drainage or redness from any incision * A large amount of rectal bleeding greater than 2-3 tablespoons. (If you had a polyp/s removed or have hemorrhoids, a small amount of blood - from the rectum is to be expected.) * You have any unanswered questions or concerns. IN THE EVENT OF A SERIOUS EMERGENCY, GO TO THE NEAREST EMERGENCY ROOM Your discharge instructions were prepared by provider Noam Waters. Patient Instructions Signature Page Samaria Saldivar Patient (or Guardian) Signature/Date: I have read and understand the instructions given to me by my caregivers. Caregiver/RN/Doctor Signature/Date: The above-named patient and/or guardian has received patient instructions on this date. + Original Patient Signature Page (only) stays with chart. Please make copy for patient.
[2017-05-16 10:16] VITALS: BP 126/77; PULSE 75; O2SAT 99
--- NOTE | 2017-05-16 10:18 | Anesthesiology Progress Note ---
Anesthesia Post Op Note Date & Time May 16, 2017 at 10:18 Vital Signs Pain Intensity: 0 Vital Signs Past 12 Hours Date Time Temp Pulse Resp B/P (MAP) Pulse Ox O2 Delivery O2 Flow Rate FiO2 05/16/17 10:16 75 20 126/77 (93) 99 Room Air 05/16/17 10:00 76 20 117/68 (84) 96 Room Air 05/16/17 09:44 87 16 111/69 (83) 97 Room Air 05/16/17 08:28 37.2 80 16 131/69 (89) 97 Room Air Notes Mental Status: alert / awake / arousable, participated in evaluation Pt Amnestic to Procedure: Yes Nausea / Vomiting: adequately controlled Pain: adequately controlled Airway Patency, RR, SpO2: stable & adequate BP & HR: stable & adequate Hydration State: stable & adequate Anesthetic Complications: no major complications apparent
--- NOTE | 2017-05-16 10:25 | GI REPORT ---
Procedure Date: 05/16/2017 9:00 AM Procedure: Colonoscopy Indications: Screening for colorectal malignant neoplasm Medicines: Monitored Anesthesia Care Complications: No immediate complications. Estimated Blood Loss: Estimated blood loss: none. Procedure: Pre-Anesthesia Assessment: - Prior to the procedure, a History and Physical was performed, and patient medications and allergies were reviewed. The patient's tolerance of previous anesthesia was also reviewed. The risks and benefits of the procedure and the sedation options and risks were discussed with the patient. All questions were answered, and informed consent was obtained. Prior Anticoagulants: The patient has taken aspirin, last dose was 2 days prior to procedure. ASA Grade Assessment: II - A patient with mild systemic disease. After reviewing the risks and benefits, the patient was deemed in satisfactory condition to undergo the procedure. After I obtained informed consent, the scope was passed under direct vision. Throughout the procedure, the patient's blood pressure, pulse, and oxygen saturations were monitored continuously. The Scope was introduced through the anus and advanced to the terminal ileum. The colonoscopy was performed without difficulty. The patient tolerated the procedure well. The quality of the bowel preparation was good. The terminal ileum, ileocecal valve, appendiceal orifice, and rectum were photographed. Findings: Hemorrhoids were found on perianal exam. Multiple small-mouthed diverticula were found in the sigmoid colon. Non-bleeding internal hemorrhoids were found during retroflexion. The hemorrhoids were small. Impression: - Hemorrhoids found on perianal exam. - Diverticulosis in the sigmoid colon. - Non-bleeding internal hemorrhoids. - No specimens collected. Recommendation: - Resume previous diet. - Continue present medications. - Repeat colonoscopy in 10 years for surveillance. - Return to primary care physician as previously scheduled. Noam Waters DO 05/16/2017 9:50:55 AM This report has been signed electronically. Note Initiated On: 05/16/2017 9:00 AM I attest to the content of the Intraoperative Record and orders documented therein, exceptions below
== END | disposition home or self-care (01) ==
LOC: C.GI 08:05
PROVIDERS: ATTEND Internal Medicine
DX: Z12.11 Encounter for screening for malignant neoplasm of colon (principal); K64.4 Residual hemorrhoidal skin tags; K57.30 Diverticulosis of large intestine without perforation or abscess without bleeding; K64.8 Other hemorrhoids; E78.00 Pure hypercholesterolemia, unspecified; E03.9 Hypothyroidism, unspecified; F41.9 Anxiety disorder, unspecified; K21.9 Gastro-esophageal reflux disease without esophagitis; Z79.899 Other long term (current) drug therapy; Z98.890 Other specified postprocedural states; Z87.891 Personal history of nicotine dependence; Z90.722 Acquired absence of ovaries, bilateral; Z79.82 Long term (current) use of aspirin; Z88.0 Allergy status to penicillin; Z80.3 Family history of malignant neoplasm of breast

== ENCOUNTER 2017-06-04 10:18 | Emergency (ER) | payer OTHER, BC ==
[~2017-06-04] VITALS: Ht 154.9 cm; Wt 59.0 kg
[~2017-06-04 10:18] MED LIST changes: -LIDOCAINE HCL 2% 2 ML VIAL (20MG/ML) ONE; -PROPOFOL IV EMULSION 10 MG/ML 20 ML VIAL IV ONE; -SODIUM CHLORIDE 0.9% 500ML 500 ML IV ONE
[2017-06-04 10:23] VITALS: TEMP 37.1; Ht 154.9 cm; Wt 59.0 kg
[2017-06-04] MEDS ORDERED: ACYC-223 PO (11:30)
--- NOTE | 2017-06-04 11:34 | EMERGENCY ROOM VISIT NOTE ---
History Report prepared by Kelsie: Zenaida Montoya Under the Supervision of: Dr. Gagan Ramos M.D. First contact with patient: 11:03 Chief Complaint: OTHER COMPLAINT Stated Complaint: SORE LUMP ON SCALP AND NECK RIGHT SIDE History of Present Illness The patient is a 66 year old female who presents to the Emergency Room with complaints of a worsening rash on her scalp and right neck. She states the area started as a "painful and itchy lump" a few days ago. She then developed rash like lesions over her neck and back, rating her discomfort as a 5/10 in severity. She denies any recent pain in her eyes or ears. She has experienced no recent nausea, vomiting or diarrhea. The patient cannot remember if she had Chicken pox as a child but states she has experienced shingles in the past. She notes her current rash feels similar to when she had shingles. The patient has a history of breast cancer, but is no longer receiving chemotherapy or radiation. Her last chemotherapy was in 2009. 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 A total of ten systems were reviewed and were otherwise negative. Past Medical & Surgical Medical Problems: (1) Breast cancer (2) Spondylolisthesis, lumbar region Family History Cancer Social History Smoking Status: Former Smoker Alcohol Use: occasionally Drug Use: none Marital Status: Housing Status: lives with family Occupation Status: employed Current/Historical Medications Scheduled Acyclovir (Zovirax), 800 MG PO 5 TIMES DAILY Aspirin (Aspirin Chewable), 81 MG PO HS Atorvastatin (Lipitor), 20 MG PO QAM Biotin (Biotin), 1 CAP PO QPM Bupropion Hcl (Bupropion Hcl Xl), 150 MG PO QAM Calcium Citrate-Vitamin D (Calcium Citrate + D), 1 TAB PO HS Lansoprazole (Prevacid), 1 CAP PO QAM Levothyroxine Sodium (Synthroid), 37.5 MCG PO QAM Multivitamin (Multivitamin), 1 TAB PO QPM Raloxifene Hcl (Evista), 60 MG PO QAM Sertraline (Zoloft), 50 MG PO QPM Allergies Coded Allergies: Penicillins (Verified Allergy, Mild, RASH, 05/16/17) Alendronate (Verified Allergy, Unknown, GI UPSET, 05/16/17) Physical Exam Vital Signs Date Time Temp Pulse Resp B/P (MAP) Pulse Ox O2 Delivery O2 Flow Rate FiO2 06/04/17 11:40 78 18 119/79 95 Room Air 06/04/17 10:23 37.1 90 18 140/79 97 Room Air Physical Exam GENERAL: She is oriented to person, place, and time. She appears well- developed and well-nourished. She does not appear distressed. HENT: Exam performed. Head: Normocephalic and atraumatic. Right Ear: TM is macdonald and pearly bilaterally, no erythema, bulging or vesicles. Left Ear: TM is macdonald and pearly bilaterally, no erythema, bulging or vesicles. Mouth/Throat: The oropharynx is clear and moist. No trismus in the jaw. No dental abscesses or uvula swelling. No oropharyngeal exudate or tonsillar abscesses. EYES: Conjunctivae and EOM are normal. Pupils are equal, round, and reactive to light. Right eye exhibits no discharge. Left eye exhibits no discharge. No scleral icterus. NECK: Normal range of motion. Neck supple. No JVD present. No spinous process tenderness present. No carotid bruit present. No rigidity. No tracheal deviation and normal range of motion present. No Brudzinski's sign and no Kernig 's sign noted. CV: Normal rate, regular rhythm, normal heart sounds and intact distal pulses. There is no peripheral edema. Palpable radial pulses bue. PULM/CHEST: Effort normal and breath sounds normal. No respiratory distress. No stridor. She has no wheezes. She has no rales. Chest Wall: She exhibits no tenderness. ABD: The abdomen is soft. Bowel sounds are normal. She has no distension. No mass is present. There is no tenderness. There is no rebound, no guarding, no Taylor's sign and no tenderness at McBurney's point. Rovsig negative MUSC/SKEL: Normal range of motion. There is no peripheral edema, tenderness or deformity. LYMPH: No cervical adenopathy. NEURO: She is alert and oriented to person, place, and time. She has normal strength. No cranial nerve deficit or sensory deficit. Coordination and gait normal. GCS eye subscore is 4. GCS verbal subscore is 5. GCS motor subscore is 6. cerebellar tests wnl. SKIN: There are vesicular lesions, painful, non-fluctuant, in different stages, over the right lateral neck and posterior scalp. Nikolsky negative, consistent with the appearance of shingles. Skin is warm and dry. She is not diaphoretic. PSYCH: She has a normal mood and affect. Her behavior is normal. Judgment and thought content normal. Medical Decision & Procedures ED Course 1115: The patient was evaluated in room C6. A complete history and physical exam was performed. Medical Decision Vital signs stable. Physical exam is consistent with the appearance of shingles. Patient will be discharged with antivirals and follow-up with PCP. DISCHARGE - Plan of care discussed with patient and questions answered. The patient was given both verbal and printed discharge instructions. The patient verbalized understanding and ability to comply. The patient is to seek outpatient follow up as noted in the discharge instructions. The patient verbalized understanding and ability to comply. The patient is discharged in stable condition. The patient was instructed to return for worsening symptoms. Medication Reconcilliation Current Medication List: was personally reviewed by me Blood Pressure Screening Patient's blood pressure: Normal blood pressure Impression Primary Impression: Shingles Scribe Attestation The scribe's documentation has been prepared under my direction and personally reviewed by me in its entirety. I confirm that the note above accurately reflects all work, treatment, procedures, and medical decision making performed by me. The chart was completed utilizing [employer] Speech voice recognition software. Grammatical errors, random word insertions, pronoun errors, and incomplete sentences are an occasional consequence of this system due to software limitations, ambient noise, and hardware issues. Any formal questions or concerns about the content, text, or information contained within the body of this dictation should be directly addressed to the physician for clarification. Departure Information Dispostion Home / Self-Care Prescriptions Acyclovir (Zovirax) 800 Mg Tab 800 MG PO 5 TIMES DAILY for 7 Days, #35 TAB Prov: Gagan Ramos M.D. 06/04/17 Referrals Silvio Tadeo III, CRNP (PCP) Patient Instructions My [facility] Problem Qualifiers Primary Impression: Shingles Herpes zoster complications: without complications Qualified Codes: B02.9 - Zoster without complications
[2017-06-04 11:40] VITALS: BP 119/79; PULSE 78; O2SAT 95
== END 2017-06-04 11:42 | disposition home or self-care (01) ==
LOC: C.EDB 10:21 → C.EDC 11:42
DX: B02.9 Zoster without complications (principal); M43.16 Spondylolisthesis, lumbar region; Z79.82 Long term (current) use of aspirin; Z85.3 Personal history of malignant neoplasm of breast; Z87.891 Personal history of nicotine dependence; Z88.0 Allergy status to penicillin; Z88.8 Allergy status to other drugs, medicaments and biological substances; Z80.9 Family history of malignant neoplasm, unspecified

== ENCOUNTER → 2017-06-06 | Outpatient (CLI) | payer OTHER, BC ==
[~2017-06-06] MED LIST changes: +ACYC-223 PO
== END | disposition home or self-care (01) ==
LOC: C.LABBC 15:12
PROVIDERS: ATTEND Nurse Practitioner Family
DX: E03.9 Hypothyroidism, unspecified (principal)

== ENCOUNTER → 2017-07-03 | Outpatient (CLI) | payer OTHER, BC ==
[~2017-07-03] MED LIST changes: -ACYC-223 PO
== END | disposition home or self-care (01) ==
LOC: C.PAPS 11:05
PROVIDERS: ATTEND Obstetrics & Gynecology
DX: Z12.4 Encounter for screening for malignant neoplasm of cervix (principal); N95.2 Postmenopausal atrophic vaginitis

== ENCOUNTER → 2017-07-13 | Outpatient (CLI) | payer OTHER, BC ==
[2017-07-13 17:17] LABS: BASO % 0.4 %; BASO ABS # 0.03 K/uL (0-0.2); EOS % 1.8 %; EOS ABS # 0.14 K/uL (0-0.5); HEMATOCRIT 42.2 % (37-47); HEMOGLOBIN 14.2 g/dL (12.0-16.0); IG# 0.02 K/uL (0.00-0.02); LYMPH % 30.3 %; LYMPH ABS # 2.38 K/uL (1.2-3.4); MEAN CORPUSCULAR HEMOGLOBIN 31.6 pg (25-34); MEAN CORPUSCULAR HGB CONC 33.6 g/dl (32-36); MEAN PLATELET VOLUME 10.7 fL (7.4-10.4); MONO % 4.8 %; MONO ABS # 0.38 K/uL (0.11-0.59); NEUT % 62.4 %; NEUT ABS # 4.91 K/uL (1.4-6.5); PLATELET COUNT 185 K/uL (130-400); RED CELL DISTRIBUTION WIDTH CV 13.4 % (11.5-14.5); RED CELL DISTRIBUTION WIDTH SD 46.1 fL (36.4-46.3); WHITE BLOOD COUNT 7.86 K/uL (4.8-10.8)
[2017-07-13 17:28] LABS: ALBUMIN 3.8 gm/dl (3.4-5.0); ALT/SGPT 45 U/L (12-78); AST/SGOT 31 U/L (15-37); BLOOD UREA NITROGEN 9 mg/dl (7-18); CALCIUM 8.8 mg/dl (8.5-10.1); CARBON DIOXIDE 29 mmol/L (21-32); CREATININE 0.86 mg/dl (0.60-1.20); GLUCOSE 89 mg/dl (70-99); POTASSIUM 3.9 mmol/L (3.5-5.1); SODIUM 140 mmol/L (136-145)
[2017-07-13 17:30] LABS: ALKALINE PHOSPHATASE 77 U/L (45-117); TOTAL PROTEIN 7.2 gm/dl (6.4-8.2)
== END | disposition home or self-care (01) ==
LOC: C.LABBC 14:04
PROVIDERS: ATTEND Nurse Practitioner Family
DX: Z85.3 Personal history of malignant neoplasm of breast (principal)

== ENCOUNTER → 2017-08-29 | Outpatient (CLI) | payer OTHER, BC | END | disposition home or self-care (01) | LOC: C.LABBC 13:06 | PROVIDERS: ATTEND Nurse Practitioner Family | DX: E03.9 Hypothyroidism, unspecified (principal) ==

== ENCOUNTER → 2017-09-05 | Outpatient (CLI) | payer OTHER, BC | END | disposition home or self-care (01) | LOC: C.LABBC 07:42 | PROVIDERS: ATTEND Nurse Practitioner Family | DX: M81.0 Age-related osteoporosis without current pathological fracture (principal) ==

== ENCOUNTER → 2017-09-08 | Outpatient (CLI) | payer OTHER, BC ==
--- NOTE | 2017-09-08 12:58 | DIAGNOSTIC IMAGING REPORT ---
SOFT TISS HEAD/NECK-THYROID CLINICAL HISTORY: 67 years-old Female with R59.0 Enlarged lymph node in [id number]. Patient reports palpable abnormality of the right neck COMPARISON: CTA of the chest 10/26/2016 TECHNIQUE: Multiple real time sonographic images of the neck were obtained accessing macdonald scale appearance and color doppler flow. FINDINGS: No adenopathy, focal mass, drainable collection, tissue heterogeneity or other focal abnormality identified within the area of clinical concern about the right neck. IMPRESSION: No adenopathy identified. The above report was generated using voice recognition software. It may contain grammatical, syntax or spelling errors. Electronically signed by: Loi Crook M.D. 09/08/2017 12:57 PM Dictated Date/Time: 09/08/2017 12:54 PM
== END | disposition home or self-care (01) ==
LOC: C.ULTR 12:24
PROVIDERS: ATTEND Nurse Practitioner Family
DX: R59.0 Localized enlarged lymph nodes (principal)

== ENCOUNTER 2021-07-14 05:53 | Inpatient (IN) ==
--- NOTE | 2021-06-28 09:27 | PAT Medication Instructions ---
Medication Instructions Date of Service June 28, 2021 Home Medications Medication Instructions Recorded pantoprazole 40 mg tablet,delayed 40 mg PO BID #180 tab 01/29/21 release bupropion HCl 150 mg 24 hr tablet, 150 mg PO QAM #90 tab 03/04/21 extended release levothyroxine 50 mcg tablet 50 mcg PO QAM #90 tab 05/31/21 aspirin 81 mg tablet,delayed release (Aspir-) 81 mg PO QPM calcium carbonate 600 mg-vitamin D3 5 mcg (200 unit) capsule (Calcium 600 + D(3)) 1 cap PO QAM multivitamin 1 tab PO QPM biotin 1 mg tablet 1 mg PO QPM pantoprazole 40 mg tablet,delayed release 40 mg PO BID bupropion HCl 150 mg 24 hr tablet, extended release 150 mg PO QAM sertraline 50 mg tablet (Zoloft) 50 mg PO HS levothyroxine 50 mcg tablet 50 mcg PO QAM atorvastatin 40 mg tablet 40 mg PO QAM STOP taking 2 weeks before surgery biotin 1 mg tablet 1 mg PO QPM DO NOT take the morning of surgery calcium carbonate 600 mg-vitamin D3 5 mcg (200 unit) capsule (Calcium 600 + D(3)) 1 cap PO QAM Take morning of surgery With a small sip of water, OTHERWISE NOTHING TO EAT OR DRINK AFTER MIDNIGHT: pantoprazole 40 mg tablet,delayed release 40 mg PO BID bupropion HCl 150 mg 24 hr tablet, extended release 150 mg PO QAM levothyroxine 50 mcg tablet 50 mcg PO QAM atorvastatin 40 mg tablet 40 mg PO QAM Take evening before surgery aspirin 81 mg tablet,delayed release (Aspir-) 81 mg PO QPM (unless surgeon directs otherwise) multivitamin 1 tab PO QPM pantoprazole 40 mg tablet,delayed release 40 mg PO BID sertraline 50 mg tablet (Zoloft) 50 mg PO HS Other Notes If you have any questions please call us at [phone] or [phone] or [phone] or [phone]
--- NOTE | 2021-07-01 13:49 | Anesthesiology Consultation ---
Date of Service July 01, 2021 Assessment & Plan (1) Encounter for pre-operative examination: Chart Review Chart Review: Acceptable Risk for Surgery (pending surgeon ordered PCP clearance and preop Covid testing results ) and Patient seen in Pre Admission Testing Awaiting surgeon ordered PCP clearance scheduled 07/05/21 Right UE restriction Per PAT appt on 07/01/21, patient denies any recent travel or large group activities. No known Covid positive exposures or Covid related symptoms. No known Covid infection in the past 90 days. Pt is vaccinated for Covid. Preop Covid testing scheduled 07/12/21= will await results. Educated on importance of self quarantining, social distancing and wearing mask in public for the patient one week prior to surgery and after Covid testing done Teaching & Discussion Pre-Anesthesia Teaching/Discussion Notes: Instructed NPO after midnight before surgery,except medications with 15 cc of water. Medication instructions provided according to the PAT guidelines. History Surgery Operation Date: 07/14/21 09:55 Proposed Procedures p L3-L4 Decompression Fusion, L4-S1 Hardware Removal, Spinal Cord Monitoring - Alex Barahona, Height/Weight Height: 5 ft 1 in Weight: 61.6 kg Allergies Allergy/AdvReac Type Severity Reaction Status Date / Time alendronate sodium Allergy Mild GI UPSET Verified 06/25/21 15:32 Penicillins Allergy Mild RASH Verified 06/25/21 15:32 Medications Home Medications Medication Instructions Recorded Confirmed Last Taken aspirin 81 mg tablet,delayed 81 mg PO QPM 01/09/19 06/25/21 06/26/19 21:00 release (Aspir-) calcium carbonate 600 mg-vitamin 1 cap PO QAM 01/09/19 06/25/21 06/26/19 08:00 D3 5 mcg (200 unit) capsule (Calcium 600 + D(3)) multivitamin 1 tab PO QPM 01/09/19 06/25/21 06/26/19 21:00 biotin 1 mg tablet 1 mg PO QPM 06/19/19 06/25/21 06/26/19 21:00 pantoprazole 40 mg tablet,delayed 40 mg PO BID #180 tab 01/29/21 06/25/21 Unknown release bupropion HCl 150 mg 24 hr tablet, 150 mg PO QAM #90 tab 03/04/21 06/25/21 Unknown extended release sertraline 50 mg tablet (Zoloft) 50 mg PO HS tab 05/13/21 06/25/21 Unknown levothyroxine 50 mcg tablet 50 mcg PO QAM #90 tab 05/31/21 06/25/21 Unknown atorvastatin 40 mg tablet 40 mg PO QAM 06/25/21 06/25/21 Unknown Past Medical History Medical History Anxiety Breast cancer (~03/2009) 2009 - s/p partial right mastectomy- chemo/radiation - resolved /no ports Fibromyalgia Stable GERD (gastroesophageal reflux disease) Stable-relatively controlled Hiatal hernia Hyperlipidemia Hypothyroidism Neuropathy RIGHT FOOT Osteoporosis Spondylolisthesis, lumbar region Tachycardia Ongoing x years- hx of event monitor in the past (no arrhythmias per patient) STRESS ECHO DONE>"WNL" AT [facility]/DOES NOT FOLLOW CARDS Exercise / Class Metabolic Activity II 4-5 Yardwork/Stairs/Walk up hill (one flight of stairs - no chest pain or SOB ) Past Family History Family History Mother Breast cancer Other No family history of adverse response to anesthesia Denies family history of Ovarian cancer Prostate cancer Myocardial infarction Lung cancer Colorectal cancer Lung disease Past Surgical History Surgical History Fusion of spine L5 AND BELOW History of colonoscopy History of esophagogastroduodenoscopy (EGD) History of hysterectomy PARTIAL Hx of lumpectomy right partial mastectomy with lymph nodes removed as well Status post trigger finger release right Past Anesthesia History No Hx of Anesthesia Complications (with exception to slow to wake- just groggy - no reintubation or ICU stay ) and No Family Hx of Anesthesia Complications History of PONV No Hx of Motion Sickness and History of PONV (relieved with IV anti-nausea meds ) Social History Smoking Status: Former smoker tobacco type: cigarettes Smoking End Date: Quit 20 years ago Hx Alcohol Use: Yes Alcohol type: wine alcohol intake frequency: 0-2 drinks per day Alcohol Intake Frequency Comment: 2 DRINKS PER DAY Hx Substance Use: No substance use type: does not use Review of Systems Occ palpitations - ongoing x years- stable - occurs occasionally Patient denies chest pain, shortness of breath, dyspnea on exertion, cough, wheezing No hx of seizures, stroke, [place], apnea/snoring. No hx of blood clots or blood transfusions Physical Exam Vital Signs VITALS BP 134/84 P 83 TEMP 98.5 SP02 97% RESP 16 Constitutional no acute distress ENMT Mouth: no TMJ clicking Thyromental Distance: > or= 3.5 Finger Breadths (3.5) Mallampati Class: II Neck + limited neck extension (mild ) Respiratory normal respiratory effort; no respiratory distress Auscultation: lungs clear to auscultation bilaterally and + diminished lung sounds (mildly thoughout ); no wheezes Cardiovascular Rate/Rhythm: regular rate and regular rhythm Heart Sounds: no murmur Vessels: no carotid bruit Musculoskeletal Spine: + pain with cervical ROM (moderate ) Extremities: extremities normal to inspection Psychiatric Orientation: alert Lab Results Anesthesia Preop Results Results Anesthesia Widget: WBC 6.70 K/uL (4.8-10.8) 07/01/21 Hgb 14.2 g/dL (12.0-16.0) 07/01/21 Hct 41.4 % (37-47) 07/01/21 Plt 171 K/uL (130-400) 07/01/21 Na 138 mmol/L (136-145) 07/01/21 K 4.0 mmol/L (3.5-5.1) 07/01/21 Cl 103 mmol/L (98-107) 07/01/21 CO2 29 mmol/L (21-32) 07/01/21 BUN 11 mg/dl (6-23) 07/01/21 Creat 0.79 mg/dl (0.6-1.2) 07/01/21 Glucose Level 157 mg/dl (70-99(Fasting)) H 07/01/21 PT 10.5 Seconds (9.0-12.0) 07/01/21 PTT 26.8 Seconds (21.0-31.0) 07/01/21 INR 1.0 (0.9-1.1) 07/01/21 Urine Color Yellow 07/01/21 Urine Appearance Clear (Clear) 07/01/21 Urine pH 7.0 (4.5-7.5) 07/01/21 Urine Specific [place] 1.008 (1.000-1.030) 07/01/21 Urine Protein Negative (Negative) 07/01/21 Urine Glucose (UA) Negative (Negative) 07/01/21 Urine Ketones Negative (Negative) 07/01/21 Urine Blood Negative (Negative) 07/01/21 Urine Nitrite Negative (Negative) 07/01/21 Urine Bilirubin Negative (Negative) 07/01/21 Urine Urobilinogen Negative (Negative) 07/01/21 Urine Leukocyte Esterase Trace (Negative) H 07/01/21 Urine WBC (Auto) 1-5 /hpf (0-5) 07/01/21 Urine RBC (Auto) 0-4 /hpf (0-4) 07/01/21 Urine Hyaline Casts (Auto) 0 /lpf (0-5) 07/01/21 Urine Epithelial Cells (Auto) 5-10 /lpf (0-5) H 07/01/21 Urine Bacteria (Auto) Negative (Negative) 07/01/21 Blood Type A Positive 07/01/21 Antibody Screen NEGATIVE 07/01/21 Testing Electrocardiogram Date: 05/13/21 Sinus rhythm at 60 bpm. Possible right ventricular conduction delay. Chest X-Ray Date: 05/13/21 Findings: + NAD Stress Test Date: 05/27/21 Type: exercise (ECHO) Resting EF: 60% Resting LV Function: normal Resting RWMA: + none Negative exercise stress echo and EKG for ischemia at 94% MPHR. 5.8 METS achieved. Dyspnea on exertion. No echo or EKG findings to suggest myocardial ischemia. Reduced exercise tolerance. Mild concentric LVH. Mild TR. Mild MR. Other Testing Cervical spine x ray 05/13/21= No acute cervical spine fracture or subluxation. Moderate multilevel facet arthrosis and mild multilevel degenerative disc disease within the cervical spine.
[2021-07-14] MEDS ORDERED: GABAPENTIN 300 MG CAP PO SCH (06:00)
[2021-07-14] MEDS ORDERED: CLINDAMYCIN 600 MG/54 ML BAG IV SCH (06:00)
[2021-07-14] MEDS ORDERED: LR 15ML/HR IV SCH (06:00)
[2021-07-14] MEDS ORDERED: ACETAMINOPHEN 500 MG TAB PO SCH (06:00)
[2021-07-14] MEDS ORDERED: CeleBREX 200 MG CAP PO SCH (06:00)
[2021-07-14] MEDS ORDERED: HYDROmorphone INJ 1 MG/ML SYRINGE IV PRN ×2 (06:50→11:44)
[2021-07-14] MEDS ORDERED: fentaNYL citrate 100 MCG/2 ML VIAL IV PRN (06:50)
[2021-07-14] MEDS ORDERED: ONDANSETRON INJ 2 MG/ML 2 ML VIAL IV PRN ×2 (06:50→11:44)
[2021-07-14] MEDS ORDERED: ATROPINE SULFATE 0.1 MG/ML 10ML SYR IV PRN (06:50)
[2021-07-14] MEDS ORDERED: ePHEDrine sulfate 50 MG/ML AMP IV PRN (06:50)
[2021-07-14] MEDS ORDERED: ROCURONIUM BROMIDE 10 MG/ML 5 ML VIAL IV ONE (07:05)
[2021-07-14] MEDS ORDERED: LIDOCAINE 2% 2 ML VIAL/AMP(20MG/ML) INFIL ONE (07:05)
[2021-07-14] MEDS ORDERED: PROPOFOL IV EMULSION 10 MG/ML 20 ML VIAL IV ONE (07:05)
[2021-07-14] MEDS ORDERED: BUPIVACAINE 0.5 % 5 MG/1 ML MPF 30ML VIAL ONE (07:05)
[2021-07-14] MEDS ORDERED: EPINEPHrine INJ 1 MG/ML AMP ONE (07:05)
[2021-07-14] MEDS ORDERED: ceFAZolin 330 MG/ML 1 GM VIAL ONE (07:05)
[2021-07-14] MEDS ORDERED: KETAMINE 50 MG/5 ML SYRINGE ONE (07:06)
[2021-07-14] MEDS ORDERED: MIDAZOLAM HCL 1 MG/ML 2ML VIAL ONE (07:06)
[2021-07-14] MEDS ORDERED: fentaNYL citrate 100 MCG/2 ML VIAL ONE (07:06)
--- NOTE | 2021-07-14 07:31 | History & Physical Bridge Note ---
Date of Service July 14, 2021 History & Physical Bridge Note I have examined the patient, reviewed the History & Physical and in the interval since the performance of the History & Physical I have noted the following changes of clinical significance: no changes noted
--- NOTE | 2021-07-14 07:32 | History & Physical Report ---
Date of Service July 14, 2021 Assessment & Plan (1) Neurogenic claudication due to lumbar spinal stenosis: Plan: L3-L4 decompression fusion, L4-S1 hardware removal History of Present Illness Chief Complaint: Back and leg pain Primary Care Provider: Douglas Barajas DO This is a 70-year-old female presents with chronic persistent back and leg pain. After failing extensive course of nonoperative care she is here for surgical invention. Allergies Allergy/AdvReac Type Severity Reaction Status Date / Time alendronate sodium Allergy Mild GI UPSET Verified 07/14/21 06:22 Penicillins Allergy Mild RASH Verified 07/14/21 06:22 Home Medications Medication Instructions Recorded Confirmed Type aspirin 81 mg tablet,delayed 81 mg PO QPM 01/09/19 07/14/21 History release (Aspir-) calcium carbonate 600 mg-vitamin 1 cap PO QAM 01/09/19 07/14/21 History D3 5 mcg (200 unit) capsule (Calcium 600 + D(3)) multivitamin 1 tab PO QPM 01/09/19 07/14/21 History biotin 1 mg tablet 1 mg PO QPM 06/19/19 07/14/21 History pantoprazole 40 mg tablet,delayed 40 mg PO BID #180 tab 01/29/21 07/14/21 Rx release bupropion HCl 150 mg 24 hr tablet, 150 mg PO QAM #90 tab 03/04/21 07/14/21 Rx extended release sertraline 50 mg tablet (Zoloft) 50 mg PO HS tab 05/13/21 07/14/21 History levothyroxine 50 mcg tablet 50 mcg PO QAM #90 tab 05/31/21 07/14/21 Rx atorvastatin 40 mg tablet 40 mg PO QAM 06/25/21 07/14/21 History magnesium 500 mg tablet 15 mg PO DAILY 07/14/21 07/14/21 History Past Med/Surg History Medical History (Updated 07/14/21 @ 07:32 by Alex Barahona DO) Anxiety Breast cancer (~03/2009) 2009 - s/p partial right mastectomy- chemo/radiation - resolved /no ports Fibromyalgia Stable GERD (gastroesophageal reflux disease) Stable-relatively controlled Hiatal hernia Hyperlipidemia Hypothyroidism Neuropathy RIGHT FOOT Osteoporosis Prediabetes Per PCP records Spondylolisthesis, lumbar region Tachycardia Ongoing x years- hx of event monitor in the past (no arrhythmias per patient) STRESS ECHO DONE>"WNL" AT [facility]/DOES NOT FOLLOW CARDS Surgical History Fusion of spine L5 AND BELOW History of colonoscopy History of esophagogastroduodenoscopy (EGD) History of hysterectomy PARTIAL Hx of lumpectomy right partial mastectomy with lymph nodes removed as well Status post trigger finger release right Family History Mother Breast cancer Other No family history of adverse response to anesthesia Denies family history of Ovarian cancer Prostate cancer Myocardial infarction Lung cancer Colorectal cancer Lung disease Social History Smoking Status: Former smoker Age Started Using Tobacco: 16; Age Quit Using Tobacco: 42; packs per day: 0.5; Years Smoked: 26; Smoking End Date: Quit 20 years ago; Second Hand Exposure: No; Hx Alcohol Use: Yes Alcohol type: wine Hx Substance Use: No Preferred Language: Nepali Communication Ability: Effective Visual Impairment: Limited Hearing Ability: Normal 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 Required: No Beliefs That Will Affect Care: None marital status: Current Living Situation: Alone current occupational status: employed 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
[2021-07-14] MEDS ORDERED: PHENYLEPHRINE HCL 10 MG/ML VIAL ONE (08:21)
[2021-07-14] MEDS ORDERED: ONDANSETRON INJ 2 MG/ML 2 ML VIAL ONE (08:49)
[2021-07-14] MEDS ORDERED: GLYCOPYRROLATE 0.2 MG/ML VIAL ONE (08:49)
[2021-07-14] MEDS ORDERED: DEXAMETHASONE SOD INJ 4 MG/ML VIAL ONE (08:49)
[2021-07-14] MEDS ORDERED: NEOSTIGMINE METHYLSULFATE 1 MG/ML 10ML VIAL ONE (08:49)
[2021-07-14] MEDS ORDERED: FLOSEAL HEMOSTATIC MATRIX 10ML TOP ONE (09:34)
--- NOTE | 2021-07-14 09:45 | Operative Report ---
Post Operative Report Pre & Post Diagnosis Operation Date: 07/14/21 07:45 Pre-Op Diagnosis: Neurogenic claudication due to lumbar spinal stenosis Post-Op Diagnosis: Neurogenic claudication due to lumbar spinal stenosis I identified the patient and participated in the time-out.: Yes Procedure Operation Date: 07/14/21 07:45 Actual Procedures #1 removal of posterior instrumentation L4-5 L5-S1. #2 exploration of fusion L4-5 L5-S1. #3 lumbar decompression with bilateral medial facetectomies and foraminotomies L2-L3 L3-L4. #4 posterior spinal fusion L3-L4. #5 placement posterior instrumentation L3-L5. #6 interbody fusion L3-L4. #7 placement of 13 x 22 mm titanium cage at L3-L4. #8 placement locally harvested morselized autograft in the posterior gutters. #9 placement infuse collagen sponge and master graft in the posterior lateral gutters and I factor interbody space. Surgeon Alex Barahona, Division Manager Merary Severino Estimated Blood Loss 100 Findings Consistent with Post-Op Diagnosis Specimens None Indications This is a 70-year-old female presents severe spinal stenosis with facet cyst and significant neural compression. Failing since course of nonoperative care she is here for the above-mentioned procedure. Description of Procedure Patient was met with identified informed consent obtained. Patient was then taken to the operative suite underwent an patient placed in a prone position the [place] table top [place] frame. All bony prominences well-padded eyes inspected to ensure no external pressure placed upon the. This point lumbar spine was prepped and draped in a sterile fashion. Sharp dissection with the assistance of Bovie cautery was performed down to and exposing the lamina and transverse processes of L3 and instrumentation at L4-L5 and S1 levels bilaterally. And then proceeded move the hardware bilaterally explore the fusion mass noting it to be mature and intact. Informed complete laminectomy of L3 3 partial laminectomy L2 including bilateral medial facetectomies and foraminotomies addressing severe spinal stenosis and facet cysts. Pedicle screws then placed in L3-L4-L5 bilaterally with assistance of fluoroscopy and the proper sized xavier placed. By way the transforaminal portion right B discectomy of L3-L4 was performed endplates curetted to subcortical any bone and a 13 x 22 mm titanium cage filled I factor tapped in position. The rods then compressed locked in final position bilaterally. The transverse processes of L3 and L4 burred to subcortical bleeding bone. Infuse collagen sponge master graft and local autograft was placed in the posterior gutters. 15 round CARY drain inserted. The incision was then closed with 1 Vicryl the fascia 2-0 Vicryl subcutaneously and 4 Monocryl for final skin closure. Steri-Strips dressings placed. Patient will continue PACU stable condition. Please note spinal cord monitoring was utilized at the procedure no changes were noted. Lastly Merary Severino was present out the entire surgery involved the patient positioning complex portions of the surgery and final skin closure. I attest to the content of the Intraoperative Record and any orders documented therein. Any exceptions are noted below.
--- NOTE | 2021-07-14 10:53 | Fluoroscopy Report ---
FL lumbar spine 2-3V CLINICAL HISTORY: L3-L4 DECOMPRESION. Status post internal fixation COMPARISON STUDY: None FLUOROSCOPY TIME: 12 seconds. FLUOROSCOPIC IMAGES: 2 FINDINGS: The patient is status post laminectomies from L3 through L5 with interpedicular screw and r od fixation present bilaterally. A disc spacer is seen at L3-4. There is also evidence for previous s urgery at L5-S1. IMPRESSION: Status post internal fixation. ACT 112: Negative or not required by law. Electronically signed by: Jules Lopez M.D. 07/14/2021 10:51 AM
[2021-07-14] MEDS ORDERED: bisacodyL 10 MG SUPP PR PRN (11:44)
[2021-07-14] MEDS ORDERED: SOD PHOSPHATE/SOD BIPHOSPHATE ENEMA 132 ML BTL PR PRN (11:44)
[2021-07-14] MEDS ORDERED: METOCLOPRAMIDE HCL INJ 5 MG/ML 2 ML VIAL IV PRN (11:44)
[2021-07-14] MEDS ORDERED: MAGNESIUM HYDROXIDE SUSP 30 ML UDC PO PRN (11:44)
[2021-07-14] MEDS ORDERED: ACETAMINOPHEN 1,000 MG/100 ML VIAL IV PRN (11:44)
[2021-07-14] MEDS ORDERED: ALUMINUM/MAGNESIUM SUSP 30 ML UDC PO PRN (11:44)
[2021-07-14] MEDS ORDERED: NALOXONE HCL 0.4 MG/1 ML VIAL/CARP IV PRN (11:44)
[2021-07-14] MEDS ORDERED: DO NOT ADMINISTER FLU VACCINE PRN (11:44)
[2021-07-14] MEDS ORDERED: FAMOTIDINE 20 MG TAB PO PRN (11:44)
[2021-07-14] MEDS ORDERED: DO NOT ADMINISTER PNEUMOCOCCAL VACCINE PRN (11:44)
[2021-07-14] MEDS ORDERED: ONDANSETRON 4 MG OD TAB PO PRN (11:44)
[2021-07-14] MEDS ORDERED: hydrOXYzine HCl 25 MG TAB PO PRN (11:44)
[2021-07-14] MEDS ORDERED: ACETAMINOPHEN 500 MG TAB PO PRN (11:44)
[2021-07-14] MEDS ORDERED: PROMETHAZINE HCL 12.5 MG in SODIUM CHLORIDE 0.9% 50 ML IV PRN (11:44)
[2021-07-14] MEDS ORDERED: LORazepam 0.5 MG TAB PO PRN (11:44)
[2021-07-14] MEDS ORDERED: LORazepam 2 MG/1 ML VIAL IV PRN (11:44)
--- NOTE | 2021-07-14 11:58 | Anesthesiology Progress Note ---
Date of Service July 14, 2021 Anesthesia Post Procedure Vital Signs Vital Signs: Temp Pulse Pulse Resp BP Pulse Ox 07/14/21 11:25 73 14 116/59 L 94 07/14/21 11:10 71 12 113/66 95 07/14/21 10:55 36.5 C 76 14 127/69 95 07/14/21 10:45 75 12 112/63 95 07/14/21 10:35 76 12 117/65 100 07/14/21 10:25 77 12 116/63 98 07/14/21 10:15 79 14 123/61 100 07/14/21 10:08 36.2 C L 89 18 142/78 H 99 07/14/21 06:26 36.8 C 79 18 137/85 98 Pain Intensity Lower Back: Pain Intensity: 3 Transfer of Care Handoff Completed per policy Notes Mental Status: alert / awake / arousable and participated in evaluation Patient Amnestic to Procedure: Yes Nausea / Vomiting: adequately controlled Pain: adequately controlled Airway Patency, RR, SpO2: stable & adequate BP & HR: stable & adequate Hydration State: stable & adequate Anesthetic Complications: no major complications apparent and Pt Satisfied with anesthetic care
--- NOTE | 2021-07-14 12:24 | Hospitalist Consultation ---
Date of Consultation July 14, 2021 Assessment & Plan (1) Neurogenic claudication due to lumbar spinal stenosis: POD #0 as per HPI- Primary service Orthopaedics - Pain controlled tiered appropriately with rescue Narcan Available - Diet ADAT- Per Primary Ortopaedics - IVF: Per Primary Orthopaedics - VTE: TEDS/SCDS, Chemoprophy- Per Primary Orthopaedics - Drains/Cavazos- Per primary Orthopaedics - ABX: primary Orthopaedics - PT/OT- primary Orthopaedics - Transfusion needs: primary Orthopaedics - ASA 81 mg PO daily - ordered to start tonight by primary orthopaedics- changed to start time tomorrow AM- (2) Hypothyroidism: Continue Synthroid 50mcg po daily (3) Anxiety: Cotninue home Buproprion 150mg daily and Sertaraline 50mg PO QHS - IV Ativan discontinued - IV Hydroxyzine discontinued - Follow sedation levels (4) GERD (gastroesophageal reflux disease): Continue BD PPI home dose - sufficient while on Decadron - Famotidine dc'd (5) Irritable bowel syndrome (IBS): Patient denies history of - Bowel regimine ordered per primary orthopaedics - patient reminded to use these with her narcotic use (6) Hyperglycemia: Hyperglycemia without the diagnosis of DM - She is not on therapy as outpatient- last HGB A1C 6.1 - Defer back to PCP - Dextrose checks AC/HS- will add coverage if > 180mg/dl - Goal <180 (7) Hypercholesterolemia: Continue Atrovastatin 40mg Supervising Physician Co-Signing Physician Notes I personally saw and examined the patient. I verified all aplumbo points and agree with AUSTYN Argueta with the following exceptions and/or additions: 70 year old POD #0 for back surgery. Medically issues stable. She reports improved sensation in bilateral lower extremities post operatively - previously having pain O/E HS1+2, no murmurs. Chest CTAB, Abdo SNT, Sensation intact in bilateral feet A/P Chronic medical needs stable. Medications reviewed with patient. Will review labs in AM but can likely sign off medically at that time. History of Present Illness Reason for Consultation: Medical Management Attending Physician: Alex Barahona DO History of Present Illness 70 YOF with POD #0 from L3-L4 decompression fusion, L4-S1 Hardware removal secondary to neurogenic claudication. Done with LMA and General Anesthesia. EBL: 100ml Hospitalist service was consulted for medical management. Patient has past medical history of: Breast Cancer (2010-Infiltrating ductal carcinoma HER-2/gigi NEG)- completed chemotherapy of Cytoxan/Taxotere and radiation)- follows yearly with [facility], Anxiety/Depression, HLD, Hypthyroidism, HTN, GERD, Hyperglycemia with out the diagnosis of Diabetes with last HGB A1C 6.1. Stress ECHO performed secondary to dyspnea 2- negative for ischemia at 94% MPHR. Patient was evaluated in her moore room postoperatively. Patient was easy to arouse and was able to stay awake and participate in the evaluation. She is on room air, lying flat. No nausea or vomitting and is currently tolerating sips of water. She does endorse pain at her lower back, but comfortable everywhere else. She does not have the burning pain or numbness/tingling in her right foot that she had prior. She is grossly neurologically intact, vital signs reviewed, history reviewed. She remains with CARY drain to bulb suction and Caavzos catheter to gravity drainage. Recommendations: - Discontinued Famotidine- Continue PPI only - Discontinued Hydroxyzine - Pain control tiered- adequate with rescue Narcan Available - Routine labs already ordered for AM - Glucose checks AC/HS while remaining on Decadron- will add coverage if >180mg/dl - ASA start date changed to 07/15/21-09 vs. 07/14/21- 2099 Allergies Allergy/AdvReac Type Severity Reaction Status Date / Time alendronate sodium Allergy Mild GI UPSET Verified 07/14/21 06:22 Penicillins Allergy Mild RASH Verified 07/14/21 06:22 Home Medications Medication Instructions Recorded Confirmed Type aspirin 81 mg tablet,delayed 81 mg PO QPM 01/09/19 07/14/21 History release (Aspir-) calcium carbonate 600 mg-vitamin 1 cap PO QAM 01/09/19 07/14/21 History D3 5 mcg (200 unit) capsule (Calcium 600 + D(3)) multivitamin 1 tab PO QPM 01/09/19 07/14/21 History biotin 1 mg tablet 1 mg PO QPM 06/19/19 07/14/21 History pantoprazole 40 mg tablet,delayed 40 mg PO BID #180 tab 01/29/21 07/14/21 Rx release bupropion HCl 150 mg 24 hr tablet, 150 mg PO QAM #90 tab 03/04/21 07/14/21 Rx extended release sertraline 50 mg tablet (Zoloft) 50 mg PO HS tab 05/13/21 07/14/21 History levothyroxine 50 mcg tablet 50 mcg PO QAM #90 tab 05/31/21 07/14/21 Rx atorvastatin 40 mg tablet 40 mg PO QAM 06/25/21 07/14/21 History magnesium 500 mg tablet 15 mg PO DAILY 07/14/21 07/14/21 History oxycodone 5 mg tablet 5 mg PO Q6H PRN #30 tab 07/14/21 Rx tramadol 50 mg tablet 50 mg PO Q6H PRN #30 tab 07/14/21 Rx Patient History Medical History Anxiety Breast cancer (~03/2009) 2009 - s/p partial right mastectomy- chemo/radiation - resolved /no ports Fibromyalgia Stable GERD (gastroesophageal reflux disease) Stable-relatively controlled Hiatal hernia Hyperlipidemia Hypothyroidism Neuropathy RIGHT FOOT Osteoporosis Prediabetes Per PCP records Spondylolisthesis, lumbar region Tachycardia Ongoing x years- hx of event monitor in the past (no arrhythmias per patient) STRESS ECHO DONE>"WNL" AT [facility]/DOES NOT FOLLOW CARDS Surgical History Fusion of spine L5 AND BELOW History of colonoscopy History of esophagogastroduodenoscopy (EGD) History of hysterectomy PARTIAL Hx of lumpectomy right partial mastectomy with lymph nodes removed as well Status post trigger finger release right Family History Mother Breast cancer Other No family history of adverse response to anesthesia Denies family history of Ovarian cancer Prostate cancer Myocardial infarction Lung cancer Colorectal cancer Lung disease Social History Smoking Status: Former smoker Age Started Using Tobacco: 16; Age Quit Using Tobacco: 42; packs per day: 0.5; Years Smoked: 26; Smoking End Date: Quit 20 years ago; Second Hand Exposure: No; Hx Alcohol Use: Yes Alcohol type: wine Hx Substance Use: No Preferred Language: Ukrainian Communication Ability: Effective Visual Impairment: Limited Hearing Ability: Normal Director Of Home Economics Required: No Beliefs That Will Affect Care: None marital status: Current Living Situation: Alone current occupational status: employed 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 Feels Safe at Home: Yes Safety Concerns: Feels Safe At This Time Childhood Exposure to Second-Hand Smoke: No caffeine: Yes Dental Care, Regularly: No Physical Activity Frequency: Does not Exercise Seatbelt Use: always Sunscreen Use: Yes Assistive Devices: Walker Review of Systems Review of Systems: REVIEW OF SYSTEMS: Constitutional: No fever, sweats or chills Eyes: No diplopia, no worsening or blurred vision ENT: normal hearing, no trouble swallowing Respiratory: (+) dyspnea with exertion, No cough, sputum, dyspnea at rest Cardiovascular: No chest pain, tightness or palpitations Abdomen: No pain, nausea, vomiting, diarrhea or constipation Musculoskeletal: (+) back and knee joint pain, NO calf pain, swelling Neurologic: (+) resolved pain to right footNo weakness, numbness/tingling, or balance problems Psychiatric: (+) anxiety or depression Skin: No rash or itch Physical Exam Physical Exam: PHYSICAL EXAM: General: awake, alert, no apparent distress Head: Normocephalic, atraumatic ENT: PERRL, no pharyngeal exudate, mucous membranes dry Neuro: AAO x 3, speech clear and appropriate, strength intact bilaterally 5/5, sensation intact and equal all extremities and dermatones, no pronator drift Chest: equal rise and fall of the chest, no accessory muscle use, no heaves or thrills, Clear to auscultation, on room air, Cardiac: Regular rate and rhythm, skin warm dry, cap refill <3 seconds, peripheral pulses +2 no JVD, no murmur, no edema GI: NABS x 4 quadrants, soft, nontender to palpation, no rebound, guarding or tenderness : Cavazos to gravity, no pain, no CVA tenderness, Extremities: Normal inspection, no peripheral edema or erythema, calfs nontender to palpation Psych: Normal mood and affect Drains: CARY with serous sang drainage, cavazos to gravity draining light yellow urine Results & Data Results & Data ([facility]) Vital Signs (Past 12 Hours) Vital Signs Temp Pulse Pulse Resp BP Pulse Ox 07/14/21 12:18 68 16 106/64 95 07/14/21 11:25 73 14 116/59 L 94 07/14/21 11:10 71 12 113/66 95 07/14/21 10:55 36.5 C 76 14 127/69 95 07/14/21 10:45 75 12 112/63 95 07/14/21 10:35 76 12 117/65 100 07/14/21 10:25 77 12 116/63 98 07/14/21 10:15 79 14 123/61 100 07/14/21 10:08 36.2 C L 89 18 142/78 H 99 07/14/21 06:26 36.8 C 79 18 137/85 98 Medications Administered Home Medications aspirin 81 mg tablet,delayed release (Aspir-) 81 mg PO QPM 01/09/19 [History Confirmed 07/14/21] calcium carbonate 600 mg-vitamin D3 5 mcg (200 unit) capsule (Calcium 600 + D(3)) 1 cap PO QAM 01/09/19 [History Confirmed 07/14/21] multivitamin 1 tab PO QPM 01/09/19 [History Confirmed 07/14/21] biotin 1 mg tablet 1 mg PO QPM 06/19/19 [History Confirmed 07/14/21] pantoprazole 40 mg tablet,delayed release 40 mg PO BID #180 tab 01/29/21 [Rx Confirmed 07/14/21] bupropion HCl 150 mg 24 hr tablet, extended release 150 mg PO QAM #90 tab 03/04/21 [Rx Confirmed 07/14/21] sertraline 50 mg tablet (Zoloft) 50 mg PO HS tab 05/13/21 [History Confirmed 07/14/21] levothyroxine 50 mcg tablet 50 mcg PO QAM #90 tab 05/31/21 [Rx Confirmed 07/14/21] atorvastatin 40 mg tablet 40 mg PO QAM 06/25/21 [History Confirmed 07/14/21] magnesium 500 mg tablet 15 mg PO DAILY 07/14/21 [History Confirmed 07/14/21] oxycodone 5 mg tablet 5 mg PO Q6H PRN #30 tab 07/14/21 [Rx] tramadol 50 mg tablet 50 mg PO Q6H PRN #30 tab 07/14/21 [Rx] Active Medications Acetaminophen (Acetaminophen 500 Mg Tab) 1,000 mg PO PREOP DREW Stop: 07/14/21 18:00 Last Admin: 07/14/21 06:28 Dose: 1,000 mg Documented by: Acetaminophen (Acetaminophen 500 Mg Tab) 1,000 mg PO Q8H PRN PRN Reason: MILD Pain Scale 1,2,3 & Pre PT Stop: 08/13/21 11:43 Al Hydrox/Mg Hydrox/Simethicone (Aluminum/Magnesium Susp 30 Ml Udc) 30 ml PO Q6H PRN PRN Reason: Dyspepsia Stop: 08/13/21 11:43 Aspirin (Aspirin 81 Mg Ectab) 81 mg PO QPM DREW Stop: 08/13/21 20:59 Atorvastatin Calcium (Atorvastatin 40 Mg Tab) 40 mg PO QAM DREW Stop: 08/14/21 08:59 Bisacodyl (Bisacodyl 10 Mg Supp) 10 mg MI DAILY PRN PRN Reason: Constipation Stop: 08/13/21 11:43 Bupropion HCl (Bupropion Xl 150 Mg Tabcr) 150 mg PO QAM DREW Stop: 08/14/21 08:59 Celecoxib (Celebrex 200 Mg Cap) 200 mg PO PREOP DREW Stop: 07/14/21 18:00 Last Admin: 07/14/21 06:28 Dose: 200 mg Documented by: Diphenhydramine HCl (Diphenhydramine Capsule 25 Mg Cap) 25 mg PO Q6H PRN PRN Reason: Allergic Rhinitis/Insomnia Stop: 08/13/21 11:43 Gabapentin (Gabapentin 300 Mg Cap) 300 mg PO PREOP DREW Stop: 07/14/21 18:00 Last Admin: 07/14/21 06:28 Dose: 300 mg Documented by: Hydromorphone HCl (Hydromorphone Inj 0.5 Mg/0.5 Ml Syr) 0.5 mg IV Q3H PRN PRN Reason: MODERATE Pain (Scale 4,5,6) & Stop: 07/28/21 11:43 Hydromorphone HCl (Hydromorphone Inj 1 Mg/Ml Syringe) 1 mg IV Q3H PRN PRN Reason: SEVERE Pain (Scale 7,8,9,10) Stop: 07/28/21 11:43 Clindamycin Phosphate (Cleocin) 600 mg in 54 mls @ 100 mls/hr IV PREOP DREW Stop: 07/15/21 05:59 Last Admin: 07/14/21 07:40 Dose: 100 mls/hr Documented by: Clindamycin Phosphate 600 mg/ (Dextrose) 54 mls @ 100 mls/hr IV Q8H [facility] Stop: 07/15/21 00:33 Sodium Chloride (Nss 1000ml) 1,000 mls @ 100 mls/hr IV .Q10H DREW Stop: 08/13/21 12:29 Promethazine HCl 12.5 mg/ (Sodium Chloride) 50.5 mls @ 202 mls/hr IV Q6H PRN PRN Reason: Nausea &/or Vomiting Stop: 08/13/21 11:43 Acetaminophen (Ofirmev) 1,000 mg in 100 mls @ 400 mls/hr IV Q8H PRN PRN Reason: Pain Rating 1-3 & Pre PT Stop: 07/17/21 11:43 Dexamethasone 6 mg/ Syringe 1.5 mls @ 1 mls/min IV DAILY [facility] Stop: 07/17/21 09:02 Influenza Virus Vaccine Quadrival (Do Not Administer Flu Vaccine) 1 ea N/A PRN PRN PRN Reason: Notification Stop: 08/13/21 11:43 Levothyroxine Sodium (Levothyroxine Sodium 50 Mcg Tablet) 50 mcg PO DAILYBB [facility] Stop: 08/14/21 06:29 Lorazepam (Lorazepam 0.5 Mg Tab) 0.5 mg PO Q8H PRN PRN Reason: Sedation/Anxiety Stop: 08/13/21 11:43 Magnesium Hydroxide (Magnesium Hydroxide Susp 30 Ml Udc) 30 ml PO Q24H PRN PRN Reason: Constipation Stop: 08/13/21 11:43 Metoclopramide HCl (Metoclopramide Hcl Inj 5 Mg/Ml 2 Ml Vial) 10 mg IV Q6H PRN PRN Reason: Nausea &/or Vomiting Stop: 08/13/21 11:43 Multivitamins (Multivitamin Tab) 1 tab PO QPM [facility] Stop: 08/13/21 20:59 Multivitamins/Minerals (Calcium 600mg + Vit D 400 Iu Tab) 1 tab PO QAM [facility] Stop: 08/14/21 08:59 Naloxone HCl (Naloxone Hcl 0.4 Mg/1 Ml Vial/Carp) 0.1 mg IV Q5M PRN PRN Reason: Oversedation/Resp depression Stop: 08/13/21 11:43 Ondansetron HCl (Ondansetron Inj 2 Mg/Ml 2 Ml Vial) 4 mg IV Q6H PRN PRN Reason: Nausea &/or Vomiting Stop: 08/13/21 11:43 Ondansetron HCl (Ondansetron 4 Mg Od Tab) 4 mg PO Q6H PRN PRN Reason: Nausea Stop: 08/13/21 11:43 Oxycodone HCl (Oxycodone Hcl Ir 5 Mg Tab (Immediate Release)) 5 - 10 mg PO Q4H PRN PRN Reason: Pain & Pre PT Stop: 07/28/21 11:43 Pantoprazole Sodium (Pantoprazole 40 Mg Tab) 40 mg PO BID DREW Stop: 08/13/21 20:59 Pneumococcal Polyvalent Vaccine (Do Not Administer Pneumococcal Vaccine) 1 ea N/A PRN PRN PRN Reason: Notification Stop: 08/13/21 11:43 Polyethylene Glycol (Polyethylene (Miralax) 17 Gm Pack) 17 gm PO Q6 DREW Stop: 08/14/21 05:59 Senna/Docusate Sodium (Docusate Sodium/Senna 50/8.6mg Tab) 2 tab PO HS DREW Stop: 08/13/21 20:59 Sertraline HCl (Sertraline Hcl 50 Mg Tablet) 50 mg PO HS DREW Stop: 08/13/21 20:59 Sodium Biphosphate/Sodium Phosphate (Sod Phosphate/Sod Biphosphate Enema 132 Ml Btl) 132 ml MI ONE PRN PRN Reason: Constipation Stop: 08/13/21 11:43 Tramadol HCl (Tramadol Hcl 50 Mg Tablet) 50 - 100 mg PO Q4H PRN PRN Reason: Moderate-Severe pain & Pre PT Stop: 08/13/21 11:43 PG Care Time/CCT Total # of Minutes Spent Total Time Spent with Patient: Total time spent is greater than 50% in coordination of care (as documented) at patient's floor/unit and/or counseling patient: Coding Level of Care Code 03325 Office/OBS Consult Lvl 3 Diagnoses Neurogenic claudication due to lumbar spinal stenosis M48.062 Hypothyroidism E03.9 Anxiety F41.9 GERD (gastroesophageal reflux disease) K21.9 Irritable bowel syndrome (IBS) K58.9 Hyperglycemia R73.9 Hypercholesterolemia E78.00
[2021-07-14] MEDS: SODIUM CHLORIDE 0.9% 1000ML 1,000 ML IV SCH (14:42)
[2021-07-14] MEDS ORDERED: CLINDAMYCIN 600 MG in DEXTROSE 5% 50 ML IV SCH (16:00)
[2021-07-14] MEDS: oxyCODONE HCL IR 5 MG TAB (IMMEDIATE RELEASE) PO PRN (16:42)
[2021-07-14] MEDS: HYDROmorphone INJ 0.5 MG/0.5 ML SYR IV PRN (18:54)
[2021-07-14] MEDS ORDERED: ASPIRIN 81 MG ECTAB PO SCH (21:00)
[2021-07-14] MEDS ORDERED: NON-FORMULARY MEDICATION (Biotin 1 mg Tablet) PO SCH (21:00)
[2021-07-14] MEDS: DOCUSATE SODIUM/SENNA 50/8.6MG TAB PO SCH (22:29)
[2021-07-14] MEDS: SERTRALINE HCL 50 MG TABLET PO SCH (22:30)
[2021-07-14] MEDS: PANTOprazole 40 MG TAB PO SCH (22:31)
[2021-07-14] MEDS: MULTIVITAMIN TAB PO SCH (22:32)
[2021-07-14] MEDS: CLINDAMYCIN 600 MG in DEXTROSE 5% 50 ML IV SCH (22:37)
[2021-07-15] MEDS: SODIUM CHLORIDE 0.9% 1000ML 1,000 ML IV SCH (00:08)
[2021-07-15] MEDS: oxyCODONE HCL IR 5 MG TAB (IMMEDIATE RELEASE) PO PRN ×3 (02:50→15:40)
[2021-07-15] MEDS: LEVOTHYROXINE SODIUM 50 MCG TABLET PO SCH (06:00)
[2021-07-15] MEDS: POLYETHYLENE (MIRALAX) 17 GM PACK PO SCH ×3 (06:00→20:39)
[2021-07-15] MEDS: CLINDAMYCIN 600 MG in DEXTROSE 5% 50 ML IV SCH (06:01)
[2021-07-15] MEDS: traMADol HCL 50 MG TABLET PO PRN (06:37)
[2021-07-15 07:10] LABS: Eosinophils # (auto) 0.01 K/uL (0-0.5); Eosinophils % (auto) 0.1 %; Immature Granulocytes # (auto) 0.03 K/uL (0.00-0.02); Immature Granulocytes % (auto) 0.3 %; Lymphocytes % (auto) 11.5 %; Mean Corpuscular Hemoglobin 32.5 pg (25-34); Mean Corpuscular Hgb Conc 34.4 g/dL (32-36); Mean Corpuscular Volume 94.7 fL (80-100); Mean Platelet Volume 9.9 fL (7.4-10.4); Monocytes % (auto) 6.2 %; Neutrophils # (auto) 9.28 K/uL (1.4-6.5); Neutrophils % (auto) 81.9 %; Platelet Count 158 K/uL (130-400); RDW Coefficient of Variation 13.2 % (11.5-14.5); RDW Standard Deviation 45.4 fL (36.4-46.3); Red Blood Count 3.38 M/uL (4.2-5.4); White Blood Count 11.32 K/uL (4.8-10.8)
[2021-07-15 07:34] LABS: Calcium 7.7 mg/dl (8.5-10.1); Creatinine Clr Calc Pharmacy 67.6 ml/min; Est GFR (African American) 104.3 ml/min; Potassium 3.8 mmol/L (3.5-5.1)
--- NOTE | 2021-07-15 07:50 | Hospitalist Progress Note ---
Date of Service July 15, 2021 Assessment & Plan (1) Neurogenic claudication due to lumbar spinal stenosis: Plan: POD #1 #1 removal of posterior instrumentation L4-5 L5-S1. #2 exploration of fusion L4-5 L5-S1. #3 lumbar decompression with bilateral medial facetectomies and foraminotomies L2-L3 L3-L4. #4 posterior spinal fusion L3-L4. #5 placement posterior instrumentation L3-L5. #6 interbody fusion L3-L4. #7 placement of 13 x 22 mm titanium cage at L3-L4. #8 placement locally harvested morselized autograft in the posterior gutters. #9 placement infuse collagen sponge and master graft in the posterior lateral gutters and I factor interbody space. EBL 100cc Pain control/bowel regimen/PT/OT/DVT prophylaxis per primary service WBC elevated 11k on am labs -- 2nd to stress/steroids from surgery. (on decadron 6mg) Afebrile Hgb 14--> 11. Acute blood loss anemia from surgery and dilutional from IVF. EBL from surgery was 100cc, CARY with 320cc output thus far and patient reported had been emptied x 3 today --> Management of drain per primary service Obtain orthostatics if any further report lightheaded/dizziness 1gm IV calcium for low calcium, normal albumin (on supplementation at home, continued) ASA 81mg daily ordered -- started this morning --> continue to monitor CARY output Check iron studies/replacement if needed Added pepcid IV push for reflux given steroids and hx ulcers/reflux on PPI BID at home (recent EGD 1 year ago) --> Of note, patient does "deny hx GIB, but does have hx of ulcers" SCDs/Heron pruett for DVT prophylaxis Monitor labs in AM (2) Hypothyroidism: Plan: Most recent TSH 1.19 Mar 2021 Continue Synthroid 50mcg po daily (3) Anxiety: Plan: Continue home Buproprion 150mg daily and Sertaraline 50mg PO QHS - IV Ativan discontinued - IV Hydroxyzine discontinued Anxiety seems to be quite well controlled at present, continue to monitor (4) GERD (gastroesophageal reflux disease): Plan: Continue BD PPI home dose Complaints of reflux, ordered pepcid IVP x 1, monitor response and can schedule if needed --> Of note, she got her Protonix late this morning and suspect could also be from that No CP/SOB (5) Irritable bowel syndrome (IBS): Plan: Patient denies history of - Bowel regimine ordered per primary orthopaedics - patient reminded to use these with her narcotic use --> miralax and senna scheduled (6) Hyperglycemia: Plan: Hyperglycemia without the diagnosis of DM - She is not on therapy as outpatient- last HGB A1C 6.1 - Defer back to PCP - Dextrose checks AC/HS- will add coverage if > 180mg/dl --> BSGs <180 and can monitor for now (7) Hypercholesterolemia: Plan: Continue Atrovastatin 40mg Hx Breast Ca 2009 s/p chemo w/ Cytoxan/Taxotere and radiation and follows yearly with [facility] Plan: continued inpatient stay hospitalist service will follow along Admission and Anticipated Discharge Date Admission Date: July 14, 2021 Subjective Patient evaluated this afternoon.' Doing well outside of some nausea/low appetitie and incisional pain, which she says they have been medicating for pain. She got her protonix late this morning, typically takes twice daily. Discussed most recent EGD - 1 year ago, looked good. Will order pepcid IVP x 1 now given steroids and likely worsening reflux. Passing gas but no BM. Had been up in the chair recently and got back to bed. Emptied CARY drain x 3 this morning. Reported no fever/chills, chest pain, shortness of breath, dysuria to me, however did note some lightheadedness earlier in the morning when first getting up with PT for the first time since surgery. Will monitor/obtain orthostatics if needed. Review of Systems Review of Systems: All systems reviewed & are unremarkable except as noted in HPI & below Physical Exam Physical Exam: General: WD/WN female, awake, alert, no apparent distress, laying on her right side upon entry Head: Normocephalic, atraumatic ENT: PERRL, no pharyngeal exudate, mucous membranes moist Neuro: AAO x 3, speech clear and appropriate, strength intact bilaterally 5/5, sensation intact and equal all extremities and dermatones, no pronator drift CV: RRR, no m/r/g, no edema, calves non-tender, pulses palpable Resp: CTAB, no w/c/r, on room air 93% GI: +BS, soft, non-tender MSK: tenderness to dorsal aspect of R foot, midfoot, no ecchymosis/sydni step off or erythema appreciated. Dressing to spine c/d/i with some shadowing circled, CARY drain with minimal bloody output (just emptied per patient) Psych/Neuro: alert, oriented x 3, pleasant cooperative, speech clear, CN intact grossly : no cavazos Results & Data Results & Data ([facility]) Vital Signs (Past 12 Hours) Vital Signs Temp Pulse Resp BP Pulse Ox 07/15/21 02:42 36.6 C 76 16 98/59 L 97 07/14/21 23:14 36.6 C 84 16 105/62 95 Laboratory Results 07/15/21 07/15/21 07/15/21 Range/Units 11:39 06:45 06:45 WBC (4.8-10.8) K/uL RBC (4.2-5.4) M/uL Hgb (12.0-16.0) g/dL Hct (37-47) % MCV (80-100) fL MCH (25-34) pg MCHC (32-36) g/dL RDW Std Deviation (36.4-46.3) fL RDW Coeff of Alivia (11.5-14.5) % Plt Count (130-400) K/uL MPV (7.4-10.4) fL Immature Gran % (Auto) % Neut % (Auto) % Lymph % (Auto) % Powell % (Auto) % Eos % (Auto) % Baso % (Auto) % Neut # (Auto) (1.4-6.5) K/uL Lymph # (Auto) (1.2-3.4) K/uL Powell # (Auto) (0.11-0.59) K/uL Eos # (Auto) (0-0.5) K/uL Baso # (Auto) (0-0.2) K/uL Immature Gran # (Auto) (0.00-0.02) K/uL Sodium (136-145) mmol/L Potassium (3.5-5.1) mmol/L Chloride (98-107) mmol/L Carbon Dioxide (21-32) mmol/L Anion Gap (3-11) BUN (6-23) mg/dl Creatinine (0.6-1.2) mg/dl Est Cr Clr Drug Dosing ml/min Est GFR ( Amer) ml/min Est GFR (Non-Af Amer) ml/min BUN/Creatinine Ratio (10-20) Glucose (70-99(Fasting)) mg/dl POC Glucose (70-99) mg/dl Calcium (8.5-10.1) mg/dl Albumin 3.5 (3.4-5.0) gm/dl Hepatitis C Ab Screen Cancelled Hepatitis C Ab (EIA) Pending Hep C Ab Signal/Cutoff Pending 07/15/21 07/15/21 07/14/21 Range/Units 06:45 06:45 20:43 WBC 11.32 H (4.8-10.8) K/uL RBC 3.38 L (4.2-5.4) M/uL Hgb 11.0 L (12.0-16.0) g/dL Hct 32.0 L (37-47) % MCV 94.7 (80-100) fL MCH 32.5 (25-34) pg MCHC 34.4 (32-36) g/dL RDW Std Deviation 45.4 (36.4-46.3) fL RDW Coeff of Alivia 13.2 (11.5-14.5) % Plt Count 158 (130-400) K/uL MPV 9.9 (7.4-10.4) fL Immature Gran % (Auto) 0.3 % Neut % (Auto) 81.9 % Lymph % (Auto) 11.5 % Powell % (Auto) 6.2 % Eos % (Auto) 0.1 % Baso % (Auto) 0.0 % Neut # (Auto) 9.28 H (1.4-6.5) K/uL Lymph # (Auto) 1.30 (1.2-3.4) K/uL Powell # (Auto) 0.70 H (0.11-0.59) K/uL Eos # (Auto) 0.01 (0-0.5) K/uL Baso # (Auto) 0.00 (0-0.2) K/uL Immature Gran # (Auto) 0.03 H (0.00-0.02) K/uL Sodium 139 (136-145) mmol/L Potassium 3.8 (3.5-5.1) mmol/L Chloride 108 H (98-107) mmol/L Carbon Dioxide 26 (21-32) mmol/L Anion Gap 5 (3-11) BUN 13 (6-23) mg/dl Creatinine 0.65 (0.6-1.2) mg/dl Est Cr Clr Drug Dosing 67.6 ml/min Est GFR ( Amer) 104.3 ml/min Est GFR (Non-Af Amer) 90.0 ml/min BUN/Creatinine Ratio 20.0 (10-20) Glucose 140 H (70-99(Fasting)) mg/dl POC Glucose 177 H (70-99) mg/dl Calcium 7.7 L (8.5-10.1) mg/dl Albumin (3.4-5.0) gm/dl Hepatitis C Ab Screen Hepatitis C Ab (EIA) Hep C Ab Signal/Cutoff 07/14/21 Range/Units 16:43 WBC (4.8-10.8) K/uL RBC (4.2-5.4) M/uL Hgb (12.0-16.0) g/dL Hct (37-47) % MCV (80-100) fL MCH (25-34) pg MCHC (32-36) g/dL RDW Std Deviation (36.4-46.3) fL RDW Coeff of Alivia (11.5-14.5) % Plt Count (130-400) K/uL MPV (7.4-10.4) fL Immature Gran % (Auto) % Neut % (Auto) % Lymph % (Auto) % Powell % (Auto) % Eos % (Auto) % Baso % (Auto) % Neut # (Auto) (1.4-6.5) K/uL Lymph # (Auto) (1.2-3.4) K/uL Powell # (Auto) (0.11-0.59) K/uL Eos # (Auto) (0-0.5) K/uL Baso # (Auto) (0-0.2) K/uL Immature Gran # (Auto) (0.00-0.02) K/uL Sodium (136-145) mmol/L Potassium (3.5-5.1) mmol/L Chloride (98-107) mmol/L Carbon Dioxide (21-32) mmol/L Anion Gap (3-11) BUN (6-23) mg/dl Creatinine (0.6-1.2) mg/dl Est Cr Clr Drug Dosing ml/min Est GFR ( Amer) ml/min Est GFR (Non-Af Amer) ml/min BUN/Creatinine Ratio (10-20) Glucose (70-99(Fasting)) mg/dl POC Glucose 165 H (70-99) mg/dl Calcium (8.5-10.1) mg/dl Albumin (3.4-5.0) gm/dl Hepatitis C Ab Screen Hepatitis C Ab (EIA) Hep C Ab Signal/Cutoff PG Care Time/CCT Total # of Minutes Spent Total Time Spent with Patient: Total time spent is greater than 50% in coordination of care (as documented) at patient's floor/unit and/or counseling patient: Coding Level of Care Code 24310 Subseq Hosp Care Lvl 2 Diagnoses Neurogenic claudication due to lumbar spinal stenosis M48.062 Hypothyroidism E03.9 Anxiety F41.9 GERD (gastroesophageal reflux disease) K21.9 Irritable bowel syndrome (IBS) K58.9 Hyperglycemia R73.9 Hypercholesterolemia E78.00
[2021-07-15] MEDS: ATORVASTATIN 40 MG TAB PO SCH (08:04)
[2021-07-15] MEDS: ASPIRIN 81 MG ECTAB PO SCH (08:04)
[2021-07-15] MEDS: CALCIUM 600MG + VIT D 400 IU TAB PO SCH (08:05)
[2021-07-15] MEDS: buPROPion XL 150 MG TABCR PO SCH (08:05)
[2021-07-15] MEDS: dexAMETHasone 6 MG in SYRINGE 0 ML IV SCH (08:06)
[2021-07-15] MEDS ORDERED: NON-FORMULARY MEDICATION (Magnesium 500 mg Tablet) PO SCH (09:00)
--- NOTE | 2021-07-15 09:35 | Orthopedic Progress Note ---
Date of Service July 15, 2021 Assessment & Plan (1) Neurogenic claudication due to lumbar spinal stenosis: Plan: At this time we will continue physical therapy monitor CARY operatively discharge home in next few days. Admission and Anticipated Discharge Date Admission Date: July 14, 2021 Subjective Patient's back pain is controlled leg symptoms markedly improved Physical Exam Physical Exam: Patient has good strength testing appears comfortable. Results & Data ([facility]) Vital Signs (Past 12 Hours) Vital Signs Temp Pulse Resp BP Pulse Ox 07/15/21 07:50 36.9 C 84 16 115/68 94 07/15/21 02:42 36.6 C 76 16 98/59 L 97 07/14/21 23:14 36.6 C 84 16 105/62 95
[2021-07-15] MEDS: PANTOprazole 40 MG TAB PO SCH ×2 (12:12→20:39)
[2021-07-15] MEDS ORDERED: STAT IV STA (12:20)
[2021-07-15] MEDS ORDERED: CALCIUM GLUCONATE 10% 1,000 MG in DEXTROSE 5% 50 ML IV ONE (13:15)
[2021-07-15] MEDS: FAMOTIDINE 20 MG in SYRINGE 3 ML IV SCH (13:46)
[2021-07-15 14:36] LABS: Ferritin 43.7 ng/ml (8-388)
[2021-07-15] MEDS: diphenhydrAMINE Capsule 25 MG CAP PO PRN (15:41)
[2021-07-15] MEDS: MULTIVITAMIN TAB PO SCH (20:38)
[2021-07-15] MEDS: DOCUSATE SODIUM/SENNA 50/8.6MG TAB PO SCH (20:39)
[2021-07-15] MEDS: SERTRALINE HCL 50 MG TABLET PO SCH (20:39)
[2021-07-15] MEDS: HYDROmorphone INJ 0.5 MG/0.5 ML SYR IV PRN (20:45)
[2021-07-16] MEDS: POLYETHYLENE (MIRALAX) 17 GM PACK PO SCH ×5 (00:04→23:10)
[2021-07-16] MEDS: HYDROmorphone INJ 0.5 MG/0.5 ML SYR IV PRN ×4 (02:05→20:37)
[2021-07-16] MEDS: diphenhydrAMINE Capsule 25 MG CAP PO PRN (02:05)
[2021-07-16] MEDS: LEVOTHYROXINE SODIUM 50 MCG TABLET PO SCH (06:33)
[2021-07-16 07:01] LABS: Hematocrit (blood only) 30.4 % (37-47); Hemoglobin 10.3 g/dL (12.0-16.0); Mean Corpuscular Hemoglobin 32.3 pg (25-34); Mean Corpuscular Hgb Conc 33.9 g/dL (32-36); Mean Corpuscular Volume 95.3 fL (80-100); Mean Platelet Volume 9.9 fL (7.4-10.4); Platelet Count 145 K/uL (130-400); RDW Coefficient of Variation 12.9 % (11.5-14.5); RDW Standard Deviation 45.3 fL (36.4-46.3); Red Blood Count 3.19 M/uL (4.2-5.4); White Blood Count 8.36 K/uL (4.8-10.8)
[2021-07-16 07:16] LABS: BUN Creatinine Ratio 19.4 (10-20); Calcium 8.2 mg/dl (8.5-10.1); Creatinine Clr Calc Pharmacy 64.5 ml/min; Est GFR (African American) 103.2 ml/min; Est GFR (Non-African American) 89.1 ml/min; Potassium 3.7 mmol/L (3.5-5.1)
[2021-07-16] MEDS: buPROPion XL 150 MG TABCR PO SCH (08:54)
[2021-07-16] MEDS: CALCIUM 600MG + VIT D 400 IU TAB PO SCH (08:54)
[2021-07-16] MEDS: ASPIRIN 81 MG ECTAB PO SCH (08:54)
[2021-07-16] MEDS: ATORVASTATIN 40 MG TAB PO SCH (08:54)
[2021-07-16] MEDS: PANTOprazole 40 MG TAB PO SCH ×2 (08:55→20:45)
--- NOTE | 2021-07-16 09:05 | Orthopedic Progress Note ---
Date of Service July 16, 2021 Assessment & Plan (1) Neurogenic claudication due to lumbar spinal stenosis: Plan: This time continue physical therapy monitor CARY operatively discharge home with home health tomorrow. Admission and Anticipated Discharge Date Admission Date: July 14, 2021 Subjective Back pain controlled leg pain markedly improved Physical Exam Physical Exam: Patient is in the chair at the bedside. Is good strength testing. Peers comfortable. Results & Data ([facility]) Vital Signs (Past 12 Hours) Vital Signs Temp Pulse Resp BP Pulse Ox 07/16/21 07:43 36.8 C 74 14 129/69 97
--- NOTE | 2021-07-16 09:19 | Hospitalist Progress Note ---
Date of Service July 16, 2021 Assessment & Plan (1) Neurogenic claudication due to lumbar spinal stenosis: Plan: POD #1 #1 removal of posterior instrumentation L4-5 L5-S1. #2 exploration of fusion L4-5 L5-S1. #3 lumbar decompression with bilateral medial facetectomies and foraminotomies L2-L3 L3-L4. #4 posterior spinal fusion L3-L4. #5 placement posterior instrumentation L3-L5. #6 interbody fusion L3-L4. #7 placement of 13 x 22 mm titanium cage at L3-L4. #8 placement locally harvested morselized autograft in the posterior gutters. #9 placement infuse collagen sponge and master graft in the posterior lateral gutters and I factor interbody space. EBL 100cc Pain control/bowel regimen/PT/OT/DVT prophylaxis per primary service WBC wnl, afebrile Hgb stable, less drop than day prior and CARY output slowed -- acute blood loss anemia from surgery/on aspirin, and dilutional from IVF Iron studies without need for replacement Continue proronix BID for reflux, no need for additional agent Emmanuel removed, no issues with voiding since Passing gas but no Bm, encouraging ambulation PT/OT Per patient, Dr Barahona likely to discharge tomorrow (2) Hypothyroidism: Plan: Most recent TSH 1.19 Mar 2021 Continue Synthroid 50mcg po daily (3) Anxiety: Plan: Continue home Buproprion 150mg daily and Sertraline 50mg PO QHS - IV Ativan discontinued - IV Hydroxyzine discontinued Anxiety seems to be quite well controlled at present, continue to monitor (4) GERD (gastroesophageal reflux disease): Plan: Continue protonix BID Carafate if needed to be consider but no issues reported at this time (5) Irritable bowel syndrome (IBS): Plan: Passing gas, no BM yet Bowel regimen/ambulation encouraged (6) Hyperglycemia: Plan: Last A1c 6.1 Has not required insulin, can f/u PCP (7) Hypercholesterolemia: Plan: Continue Atorvastatin 40mg Plan: continued inpatient stay, possible d/c tomorrow per primary service Hospitalist service will chart check in AM, but sign off at this time. Call with any questions/concerns Admission and Anticipated Discharge Date Admission Date: July 14, 2021 Supervising Physician Co-Signing Physician Notes PA Supervision Note: I did not personally see or examine the patient today, but I verified all palumbo points of HUMBLE Liu's assessment and plan with the following exceptions/additions: None Subjective Patient evaluated later this morning, almost around lunch. Had been up and in chair this morning. Doing well. Leg symptoms improved. Still having incisional pain but tolerable. Being cautious about getting up and not twisting. No issues with urination since emmanuel discontinued. She notes she has been passing lots of gas but no BM yet. Feels like she has to use the restroom now. CARY drain output slowed -- she states they emptied it about 4 times yesterday, currently with about 50-70cc output. She states Dr Barahona hoping to plan to discharge her tomorrow. No fever, chills, chest pain shortness of breath, abd pain, nausea or vomiting at this time. Review of Systems Review of Systems: All systems reviewed & are unremarkable except as noted in HPI & below Physical Exam Physical Exam: General: WD/WN female, awake, alert, no apparent distress, sleeping in bed upon entry, no acute distress Head: Normocephalic, atraumatic ENT: PERRL, no pharyngeal exudate, mucous membranes moist CV: RRR, no m/r/g, no edema, calves non-tender, pulses palpable Resp: CTAB, no w/c/r, on room air 97% GI: +BS, soft, non-tender MSK: dressing to spine c/d/i with shadowing circles, tender to palpation, CARY with 60cc bloody drainage, NVI, strength equal b/l LE, pulses palpable tenderness to dorsal aspect of R foot, midfoot, no ecchymosis/sydni step off or erythema appreciated. Dressing to spine c/d/i with some shadowing circled, CARY drain with minimal bloody output (just emptied per patient) Psych/Neuro: alert, oriented x 3, pleasant cooperative, speech clear, CN intact grossly : no emmanuel Results & Data Results & Data ([facility]) Vital Signs (Past 12 Hours) Vital Signs Temp Pulse Resp BP Pulse Ox 07/16/21 07:43 36.8 C 74 14 129/69 97 Laboratory Results 07/16/21 07/16/21 07/16/21 Range/Units 08:05 06:14 06:14 WBC 8.36 (4.8-10.8) K/uL RBC 3.19 L (4.2-5.4) M/uL Hgb 10.3 L (12.0-16.0) g/dL Hct 30.4 L (37-47) % MCV 95.3 (80-100) fL MCH 32.3 (25-34) pg MCHC 33.9 (32-36) g/dL RDW Std Deviation 45.3 (36.4-46.3) fL RDW Coeff of Alivia 12.9 (11.5-14.5) % Plt Count 145 (130-400) K/uL MPV 9.9 (7.4-10.4) fL Sodium 140 (136-145) mmol/L Potassium 3.7 (3.5-5.1) mmol/L Chloride 105 (98-107) mmol/L Carbon Dioxide 30 (21-32) mmol/L Anion Gap 5 (3-11) BUN 13 (6-23) mg/dl Creatinine 0.67 (0.6-1.2) mg/dl Est Cr Clr Drug Dosing 64.5 ml/min Est GFR ( Amer) 103.2 ml/min Est GFR (Non-Af Amer) 89.1 ml/min BUN/Creatinine Ratio 19.4 (10-20) Glucose 125 H (70-99(Fasting)) mg/dl POC Glucose 140 H (70-99) mg/dl Calcium 8.2 L (8.5-10.1) mg/dl Iron (35-150) mcg/dl TIBC (250-450) mcg/dl Unsaturated IBC (155-355) mcg/dl Transferrin % Sat (15-50) % Ferritin (8-388) ng/ml Albumin (3.4-5.0) gm/dl Hepatitis C Ab Screen Hepatitis C Ab (EIA) (NON-REACTIVE) Hep C Ab Signal/Cutoff (<1.00) 07/15/21 07/15/21 07/15/21 Range/Units 20:40 13:14 11:39 WBC (4.8-10.8) K/uL RBC (4.2-5.4) M/uL Hgb (12.0-16.0) g/dL Hct (37-47) % MCV (80-100) fL MCH (25-34) pg MCHC (32-36) g/dL RDW Std Deviation (36.4-46.3) fL RDW Coeff of Alivia (11.5-14.5) % Plt Count (130-400) K/uL MPV (7.4-10.4) fL Sodium (136-145) mmol/L Potassium (3.5-5.1) mmol/L Chloride (98-107) mmol/L Carbon Dioxide (21-32) mmol/L Anion Gap (3-11) BUN (6-23) mg/dl Creatinine (0.6-1.2) mg/dl Est Cr Clr Drug Dosing ml/min Est GFR ( Amer) ml/min Est GFR (Non-Af Amer) ml/min BUN/Creatinine Ratio (10-20) Glucose (70-99(Fasting)) mg/dl POC Glucose 156 H (70-99) mg/dl Calcium (8.5-10.1) mg/dl Iron 68 (35-150) mcg/dl TIBC 271 (250-450) mcg/dl Unsaturated IBC 203 (155-355) mcg/dl Transferrin % Sat 25 (15-50) % Ferritin 43.7 (8-388) ng/ml Albumin (3.4-5.0) gm/dl Hepatitis C Ab Screen Hepatitis C Ab (EIA) NON-REACTIVE (NON-REACTIVE) Hep C Ab Signal/Cutoff 0.00 (<1.00) 07/15/21 07/15/21 Range/Units 06:45 06:45 WBC (4.8-10.8) K/uL RBC (4.2-5.4) M/uL Hgb (12.0-16.0) g/dL Hct (37-47) % MCV (80-100) fL MCH (25-34) pg MCHC (32-36) g/dL RDW Std Deviation (36.4-46.3) fL RDW Coeff of Alivia (11.5-14.5) % Plt Count (130-400) K/uL MPV (7.4-10.4) fL Sodium (136-145) mmol/L Potassium (3.5-5.1) mmol/L Chloride (98-107) mmol/L Carbon Dioxide (21-32) mmol/L Anion Gap (3-11) BUN (6-23) mg/dl Creatinine (0.6-1.2) mg/dl Est Cr Clr Drug Dosing ml/min Est GFR ( Amer) ml/min Est GFR (Non-Af Amer) ml/min BUN/Creatinine Ratio (10-20) Glucose (70-99(Fasting)) mg/dl POC Glucose (70-99) mg/dl Calcium (8.5-10.1) mg/dl Iron (35-150) mcg/dl TIBC (250-450) mcg/dl Unsaturated IBC (155-355) mcg/dl Transferrin % Sat (15-50) % Ferritin (8-388) ng/ml Albumin 3.5 (3.4-5.0) gm/dl Hepatitis C Ab Screen Cancelled Hepatitis C Ab (EIA) (NON-REACTIVE) Hep C Ab Signal/Cutoff (<1.00) Diagnostic Findings 07/16/21 07/16/21 07/16/21 Range/Units 12:08 08:05 06:14 WBC (4.8-10.8) K/uL RBC (4.2-5.4) M/uL Hgb (12.0-16.0) g/dL Hct (37-47) % MCV (80-100) fL MCH (25-34) pg MCHC (32-36) g/dL RDW Std Deviation (36.4-46.3) fL RDW Coeff of Alivia (11.5-14.5) % Plt Count (130-400) K/uL MPV (7.4-10.4) fL Sodium 140 (136-145) mmol/L Potassium 3.7 (3.5-5.1) mmol/L Chloride 105 (98-107) mmol/L Carbon Dioxide 30 (21-32) mmol/L Anion Gap 5 (3-11) BUN 13 (6-23) mg/dl Creatinine 0.67 (0.6-1.2) mg/dl Est Cr Clr Drug Dosing 64.5 ml/min Est GFR ( Amer) 103.2 ml/min Est GFR (Non-Af Amer) 89.1 ml/min BUN/Creatinine Ratio 19.4 (10-20) Glucose 125 H (70-99(Fasting)) mg/dl POC Glucose 163 H 140 H (70-99) mg/dl Calcium 8.2 L (8.5-10.1) mg/dl Iron (35-150) mcg/dl TIBC (250-450) mcg/dl Unsaturated IBC (155-355) mcg/dl Transferrin % Sat (15-50) % Ferritin (8-388) ng/ml Hepatitis C Ab (EIA) (NON-REACTIVE) Hep C Ab Signal/Cutoff (<1.00) 07/16/21 07/15/21 07/15/21 Range/Units 06:14 20:40 13:14 WBC 8.36 (4.8-10.8) K/uL RBC 3.19 L (4.2-5.4) M/uL Hgb 10.3 L (12.0-16.0) g/dL Hct 30.4 L (37-47) % MCV 95.3 (80-100) fL MCH 32.3 (25-34) pg MCHC 33.9 (32-36) g/dL RDW Std Deviation 45.3 (36.4-46.3) fL RDW Coeff of Alivia 12.9 (11.5-14.5) % Plt Count 145 (130-400) K/uL MPV 9.9 (7.4-10.4) fL Sodium (136-145) mmol/L Potassium (3.5-5.1) mmol/L Chloride (98-107) mmol/L Carbon Dioxide (21-32) mmol/L Anion Gap (3-11) BUN (6-23) mg/dl Creatinine (0.6-1.2) mg/dl Est Cr Clr Drug Dosing ml/min Est GFR ( Amer) ml/min Est GFR (Non-Af Amer) ml/min BUN/Creatinine Ratio (10-20) Glucose (70-99(Fasting)) mg/dl POC Glucose 156 H (70-99) mg/dl Calcium (8.5-10.1) mg/dl Iron 68 (35-150) mcg/dl TIBC 271 (250-450) mcg/dl Unsaturated IBC 203 (155-355) mcg/dl Transferrin % Sat 25 (15-50) % Ferritin 43.7 (8-388) ng/ml Hepatitis C Ab (EIA) (NON-REACTIVE) Hep C Ab Signal/Cutoff (<1.00) 07/15/21 Range/Units 11:39 WBC (4.8-10.8) K/uL RBC (4.2-5.4) M/uL Hgb (12.0-16.0) g/dL Hct (37-47) % MCV (80-100) fL MCH (25-34) pg MCHC (32-36) g/dL RDW Std Deviation (36.4-46.3) fL RDW Coeff of Alivia (11.5-14.5) % Plt Count (130-400) K/uL MPV (7.4-10.4) fL Sodium (136-145) mmol/L Potassium (3.5-5.1) mmol/L Chloride (98-107) mmol/L Carbon Dioxide (21-32) mmol/L Anion Gap (3-11) BUN (6-23) mg/dl Creatinine (0.6-1.2) mg/dl Est Cr Clr Drug Dosing ml/min Est GFR ( Amer) ml/min Est GFR (Non-Af Amer) ml/min BUN/Creatinine Ratio (10-20) Glucose (70-99(Fasting)) mg/dl POC Glucose (70-99) mg/dl Calcium (8.5-10.1) mg/dl Iron (35-150) mcg/dl TIBC (250-450) mcg/dl Unsaturated IBC (155-355) mcg/dl Transferrin % Sat (15-50) % Ferritin (8-388) ng/ml Hepatitis C Ab (EIA) NON-REACTIVE (NON-REACTIVE) Hep C Ab Signal/Cutoff 0.00 (<1.00) PG Care Time/CCT Total # of Minutes Spent Total Time Spent with Patient: Total time spent is greater than 50% in coordination of care (as documented) at patient's floor/unit and/or counseling patient: Coding Level of Care Code 60796 Subseq Hosp Care Lvl 2 Diagnoses Neurogenic claudication due to lumbar spinal stenosis M48.062 Hypothyroidism E03.9 Anxiety F41.9 GERD (gastroesophageal reflux disease) K21.9 Irritable bowel syndrome (IBS) K58.9 Hyperglycemia R73.9 Hypercholesterolemia E78.00
[2021-07-16] MEDS: dexAMETHasone 6 MG in SYRINGE 0 ML IV SCH (09:37)
[2021-07-16] MEDS: FAMOTIDINE 20 MG in SYRINGE 3 ML IV SCH (11:02)
[2021-07-16] MEDS ORDERED: GLUCOSE 40% GEL 15 GM TUBE PO PRN (17:53)
[2021-07-16] MEDS ORDERED: GLUCAGON FOR INJ 1 MG VIAL SQ PRN (17:53)
[2021-07-16] MEDS ORDERED: GLUCOSE 10 TABS/TUBE PO PRN (17:53)
[2021-07-16] MEDS ORDERED: CARBOHYDRATES FOR HYPOGLYCEMIA PO PRN (17:53)
[2021-07-16] MEDS ORDERED: DEXTROSE 50% 50 ML SYRINGE IV PRN (17:53)
[2021-07-16] MEDS: INSULIN ASPART PER UNIT SC SCH ×2 (20:41→20:56)
[2021-07-16] MEDS: MULTIVITAMIN TAB PO SCH (20:44)
[2021-07-16] MEDS: SERTRALINE HCL 50 MG TABLET PO SCH (20:44)
[2021-07-16] MEDS: DOCUSATE SODIUM/SENNA 50/8.6MG TAB PO SCH (20:44)
[2021-07-17] MEDS: HYDROmorphone INJ 0.5 MG/0.5 ML SYR IV PRN (01:16)
[2021-07-17] MEDS: LEVOTHYROXINE SODIUM 50 MCG TABLET PO SCH (05:43)
[2021-07-17] MEDS: POLYETHYLENE (MIRALAX) 17 GM PACK PO SCH ×2 (05:43→12:20)
[2021-07-17] MEDS: traMADol HCL 50 MG TABLET PO PRN ×2 (07:38→14:55)
[2021-07-17 08:33] LABS: Hematocrit (blood only) 33.5 % (37-47); Hemoglobin 11.2 g/dL (12.0-16.0); Mean Corpuscular Hemoglobin 31.9 pg (25-34); Mean Corpuscular Hgb Conc 33.4 g/dL (32-36); Mean Corpuscular Volume 95.4 fL (80-100); Mean Platelet Volume 10.3 fL (7.4-10.4); Platelet Count 169 K/uL (130-400); RDW Standard Deviation 45.1 fL (36.4-46.3); Red Blood Count 3.51 M/uL (4.2-5.4); White Blood Count 10.24 K/uL (4.8-10.8)
[2021-07-17 09:00] LABS: BUN Creatinine Ratio 19.7 (10-20); Calcium 8.7 mg/dl (8.5-10.1); Creatinine Clr Calc Pharmacy 70.8 ml/min; Est GFR (African American) 106.5 ml/min; Est GFR (Non-African American) 91.9 ml/min; Potassium 3.7 mmol/L (3.5-5.1)
[2021-07-17] MEDS: ASPIRIN 81 MG ECTAB PO SCH (09:42)
[2021-07-17] MEDS: FAMOTIDINE 20 MG in SYRINGE 3 ML IV SCH (09:42)
[2021-07-17] MEDS: dexAMETHasone 6 MG in SYRINGE 0 ML IV SCH (09:42)
[2021-07-17] MEDS: ATORVASTATIN 40 MG TAB PO SCH (09:42)
[2021-07-17] MEDS: PANTOprazole 40 MG TAB PO SCH (09:42)
[2021-07-17] MEDS: buPROPion XL 150 MG TABCR PO SCH (09:42)
[2021-07-17] MEDS: CALCIUM 600MG + VIT D 400 IU TAB PO SCH (09:42)
[2021-07-17] MEDS: INSULIN ASPART PER UNIT SC SCH ×2 (09:43→13:53)
--- NOTE | 2021-07-17 10:09 | Discharge Summary ---
Date of Service July 17, 2021 Admission HPI Per Admitting Provider This is a 70-year-old female presents with chronic persistent back and leg pain. After failing extensive course of nonoperative care she is here for surgical invention. Principal Diagnosis Lumbar spinal stenosis with neurogenic medication Discharge Data Allergies Allergy/AdvReac Type Severity Reaction Status Date / Time alendronate sodium Allergy Mild GI UPSET Verified 07/14/21 06:22 Penicillins Allergy Mild RASH Verified 07/14/21 06:22 Consultations 07/14/21 11:44 Consult Hospitalist Routine Procedures Performed Operation Date: 07/14/21 07:45 Actual Procedures p L3-L4 Decompression Fusion, Spinal Cord Monitoring(Not Applicable) - Alex Barahona DO s L4-S1 Hardware Removal(Not Applicable) - Alex Barahona DO Ordered Studies 07/14/21 07:45 FL lumbar spine 2-3V Routine Hospital Course (1) Neurogenic claudication due to lumbar spinal stenosis: Patient with lumbar decompression fusion tolerated as well stable orthopedic floor postoperative. Postop day 1 she was up and ambulating progressed to postop day #2 on postop day #3 CARY drainage decreased appropriate. Pain well controlled. Subsequently discharged home with home health. Discharge orders instructions on the chart for further review. Total Time Total Time Spent Total Time Spent (In Minutes): 20 minutes Discharge Plan Discharge Items Patient Disposition: Home - Home Health Services Reason For Visit: Spinal Stenosis of Lumbar Region with Radiculopath Discharge Diagnosis: Lumbar spinal stenosis with radiculopathy Activity: As commented below Non-emergency contact: Primary Care Provider Call non-emergency contact if: you have any medication questions Follow-up/Referrals: Douglas Barajas DO [Primary Care Provider] - Diet: Regular Addtl Attending Provider Instructions: ACTIVITY RECOMMENDATIONS: SELF CARE INSTRUCTIONS AFTER THORACIC/LUMBAR FUSIONS 1. You may walk to your tolerance. It is good exercise for your legs and back. Expect some back and intermittent leg aches and pains. 2. You may perform "counter-top" level activities (make a sandwich, radha with a project, etc.). 3. No bending or lifting of more than 10 pounds or back twisting of any nature (roll like a log when turning in bed). 4. You may ride in a car for 20-30 minutes at a time. No driving until after your first visit with your doctor. 5. Frequent changes of position and restricting sitting to 30 minutes at a time will help limit the amount of back spasms and stiffness you may experience. 6. You may discontinue the use of ambulatory aids (cane, crutches, etc.) once your strength and confidence allow. 7. You may inspector eyeglass the shower and let water strike your incision when you arrive home at least once daily. Do not take a tub bath, sit in a hot tub or go into a swimming pool until after your first recheck in the office. SPECIAL CARE INSTRUCTIONS: VERY IMPORTANT TO READ AND REVIEW A. Your surgical incision has been closed with a cosmetic suture under the skin that will dissolve in about 6 weeks. In 14 days, you can use a pair of clean scissors and cut the suture that is left outside of the skin at the ends of your incision. 1. The small skin tapes can be removed 7 days after surgery if they have not fallen off by that point. 2. You may keep the wound open to air as much as possible to promote healing after post-op day number 5 unless told otherwise by your doctor. 3. If you think the wound looks like it is becoming infected (redness or worsening drainage) and/or you are experiencing fever, chill or worsening back pain and muscle spasms, contact the office so that we may evaluate you as soon as possible. B. Complications are uncommon, but please contact us if you have any signs or symptoms of: 1. wound infection (fever higher than 102.5 degrees F, redness, separation of wound, drainage, or increasing pain from the incision) 2. blood clots in legs (pain, swelling, redness and warmth in legs) 3. urinary tract infection (fever higher than 102.5 degrees F, burning upon urination or increased frequency of urination) 4. nerve problems (inability to walk on your toes or heels, numbness, loss of bowel or bladder control) 5. any other symptoms that concern you C. Please call the office at if you have any concerns or questions about your operation or recovery. D. No smoking! Smoking drastically decreases the chance of a solid fusion. E. Do not take any anti-inflammatory medications (Indocin, Advil, Motrin, Aspirin, Naprosyn, etc.) as these may inhibit the chance of a solid fusion. Tylenol is okay to take for pain. MANAGING PAIN AFTER SPINAL SURGERY 1. Narcotic medication is intended for short-term use and will be provided for surgical pain. Surgical pain usually lasts for a period of 4-6 weeks. Narcotic medication includes Percocet, Vicodin, Darvocet, Tylenol #3 or Lortab. 2. Longer-term pain is more appropriately treated with non-narcotic medication such as Tylenol ES. 3. Muscle spasm is not appropriately treated with narcotics. Muscle relaxers such as Soma, Flexeril or Skelaxin can be used along with Tylenol ES. 4. Remember that we all live with some "aches and pains". This is not unusual or uncommon after an injury or as we get older. a. Back pain is expected and may include muscle spasms for 4 to 6 weeks after surgery. The pain should gradually improve. If the pain worsens for no apparent reason, please contact the office. b. Intermittent leg pain may also be experienced and should not be concerned about unless it worsens for no apparent reason. If so, please contact the office. 5. We will provide appropriate medication within the normal guidelines of their prescribed use. We will also be very cautious and aware of potential abuse and extended duration of patients' medication needs. a. Pain medications are for your comfort and to assist with sleep and rest so that the tissue can heal. They are not provided in order to return to normal activity and should not be used through the day. To do so or worsening pain at night can result from ongoing tissue damage and development of tolerance to the prescribed medicine. 6. Please allow 2-3 days to process refills. Prescriptions will not be mailed but must be picked up at the office. FOLLOW UP VISIT: Keep your scheduled follow-up appointment. Any questions, please call the office at . Pending Studies at Discharge: No Stand-Alone Forms: [employer], Smoking Cessation Medications and DC Order Prescriptions: New tramadol 50 mg tablet 50 mg PO Q6H PRN (Reason: pain, moderate) Qty: 30 RF: 0 oxycodone 5 mg tablet 5 mg PO Q6H PRN (Reason: pain, severe) Qty: 30 RF: 0 Continued pantoprazole 40 mg tablet,delayed release (DR/EC) 40 mg PO BID Qty: 180 RF: 3 bupropion HCl 150 mg tablet extended release 24 hr 150 mg PO QAM Qty: 90 RF: 3 levothyroxine 50 mcg tablet 50 mcg PO QAM Qty: 90 RF: 1 sertraline [Zoloft] 50 mg tablet 50 mg PO HS RF: 0 multivitamin Tablet 1 tab PO QPM RF: 0 aspirin [Aspir-81] 81 mg Tablet,Delayed Release (Dr/Ec) 81 mg PO QPM RF: 0 Calcium 600 + D(3) 600 mg calcium- 200 unit Capsule 1 cap PO QAM RF: 0 biotin 1 mg Tablet 1 mg PO QPM RF: 0 atorvastatin 40 mg tablet 40 mg PO QAM RF: 0 magnesium 500 mg Tablet 15 mg PO DAILY RF: 0 Discharge Orders: Discharge Order (Routine); Ordered 07/17/21 Ordered By: Alex Barahona Admission Data Admit Date/Time: 07/14/21 09:49 Attending Provider: Alex Barahona Admit Provider: Alex Barahona Primary Care Provider: Douglas Barajas Other Providers: Erik Sullivan ; Heather Liu ; Arjun Cardona ; Tristan Morrison ; Kevin Erickson ; Oziel Alcaraz ; Yuniel Brown ; Wyatt Medel ; Lashell Bonner ; Monique Pastrana ; Tone Brush ; Jennifer Watson ; Benjamin Manuel ; Yvan Akers ; Meagan Kern ; Reena Durant ; Paresh Gonzalez ; Heather Layne ; Chucho Vidal ; Lauro Parikh ; Ponce Craig ; Arjun Amaya ; Charmaine Mcclain ; Marina Elaine ; Jos Borden ; Jojo Cruz ; Yariel Lara ; Marcel Chaudhary ; Karla Bal ; Luke Yang ; Carlos Odom S. ; [facility]
[2021-07-17] MEDS: oxyCODONE HCL IR 5 MG TAB (IMMEDIATE RELEASE) PO PRN (12:19)
== END 2021-07-17 15:24 | disposition home health service (06) | DRG 454 ==
LOC: ASU 05:53 → PACUINP 09:49 → 3E 11:45